=== PATIENT | male | born 1950 | race Hispanic/Latino ===

== ENCOUNTER 2018-09-16 10:40 | Emergency (ER) | payer MEDICARE, OTHER ==
[2018-09-16] MEDS ORDERED: levETIRAcetam 1,000 MG in NA CHLORIDE 0.9% 100 ML IV ONE (12:15)
--- NOTE | 2018-09-16 12:24 | EDPHYS ---
Physician Documentation [facility] Name: Tonio Almonte Age: 67 yrs Sex: Male : 1950 Arrival Date: 09/16/2018 Time: 10:44 Bed 15 Private MD: ED Physician Eric Webster HPI: 09/16 12:00 This 67 yrs old Male presents to ER via EMS with complaints of Seizure. pm1 12:00 The patient presents the episode(s) was witnessed, Home health nurse. pm1 21:26 Character of seizure(s): Loss of consciousness: the patient experienced loss of pm1 consciousness, Motor activity: generalized, Incontinence: incontinent of bladder, incontinent of bowel, Apnea: the patient did not experience apnea, Circulation: the patient did not experience evidence of pulse disturbance. Seizure onset: just prior to arrival. Context: occurred at home, Contributing factors: unknown, the patient is post-ictal. Seizure Hx: Last seizure: The patient's last seizure was approximately 2 year(s) ago, Seizure medications: Keppra. Associated injury: The patient did not suffer any apparent associated injury. EMS care: none. Current symptoms: Currently, the patient is not experiencing any symptoms, the patient feels back to baseline. The patient has experienced similar episodes in the past, multiple times, due to prior CVA. Historical: - Allergies: 10:49 No Known Allergies; bp - Home Meds: 10:49 levetiracetam 500 mg Oral tab 1 tab twice a day [Active]; Risperdal 4 mg oral tab 1 tab bp once daily [Active]; fluoxetine 20 mg Oral cap 1 cap once daily [Active]; Namzaric 28-10 mg oral CSpX 1 cap once daily [Active]; donepezil 10 mg oral tab 1 tab twice a day [Active]; loratadine 10 mg oral tab 1 tab once daily [Active]; - PMHx: 10:49 epilepsy; CVA; bp - Immunization history:: Adult Immunizations up to date. - Social history:: Smoking status: Patient/guardian denies using tobacco. - Ebola Screening: : Patient negative for fever greater than or equal to 101.5 degrees Fahrenheit, and additional compatible Ebola Virus Disease symptoms Patient denies exposure to infectious person Patient denies travel to an Ebola-affected area in the 21 days before illness onset No symptoms or risks identified at this time. ROS: 21:26 Constitutional: Negative for fever, chills, and weight loss, Eyes: Negative for injury, pm1 pain, redness, and discharge, ENT: Negative for injury, pain, and discharge, Neck: Negative for injury, pain, and swelling, Cardiovascular: Negative for chest pain, palpitations, and edema, Respiratory: Negative for shortness of breath, cough, wheezing, and pleuritic chest pain, Abdomen/GI: Negative for abdominal pain, nausea, vomiting, diarrhea, and constipation, Back: Negative for injury and pain, : Negative for injury, bleeding, discharge, and swelling, MS/Extremity: Negative for injury and deformity, Skin: Negative for injury, rash, and discoloration. 21:26 Neuro: Positive for seizure activity, Negative for headache. Exam: 21:26 Constitutional: This is a well developed, well nourished patient who is awake, alert, pm1 and in no acute distress. Head/Face: Normocephalic, atraumatic. Eyes: Pupils equal round and reactive to light, extra-ocular motions intact. Lids and lashes normal. Conjunctiva and sclera are non-icteric and not injected. Cornea within normal limits. Periorbital areas with no swelling, redness, or edema. ENT: Nares patent. No nasal discharge, no septal abnormalities noted. Tympanic membranes are normal and external auditory canals are clear. Oropharynx with no redness, swelling, or masses, exudates, or evidence of obstruction, uvula midline. Mucous membranes moist. Neck: Trachea midline, no thyromegaly or masses palpated, and no cervical lymphadenopathy. Supple, full range of motion without nuchal rigidity, or vertebral point tenderness. No Meningismus. Chest/axilla: Normal chest wall appearance and motion. Nontender with no deformity. No lesions are appreciated. Cardiovascular: Regular rate and rhythm with a normal S1 and S2. No gallops, murmurs, or rubs. Normal PMI, no JVD. No pulse deficits. Respiratory: Lungs have equal breath sounds bilaterally, clear to auscultation and percussion. No rales, rhonchi or wheezes noted. No increased work of breathing, no retractions or nasal flaring. Abdomen/GI: Soft, non-tender, with normal bowel sounds. No distension or tympany. No guarding or rebound. No evidence of tenderness throughout. Back: No spinal tenderness. No costovertebral tenderness. Full range of motion. Skin: Warm, dry with normal turgor. Normal color with no rashes, no lesions, and no evidence of cellulitis. MS/ Extremity: Pulses equal, no cyanosis. Neurovascular intact. Full, normal range of motion. 21:26 Neuro: Orientation: to person, place, time, situation, Mentation: is normal, Motor: moves all fours, baseline 2/5 in lower extremities, baseline 3/5 in upper extermites. Vital Signs: 10:52 BP 143 / 70; Pulse 81; Resp 16; Temp 98; Pulse Ox 100% ; Weight 72.57 kg; bp 12:04 BP 142 / 78; Pulse 77; Resp 16; Pulse Ox 99% on R/A; mh5 14:00 BP 138 / 76; Pulse 78; Resp 17; Pulse Ox 100% on R/A; mh5 [place] Coma Score: 10:49 Eye Response: spontaneous(4). Verbal Response: oriented(5). Motor Response: obeys bp commands(6). Total: 15. MDM: 10:47 Patient medically screened. pm1 11:28 Data reviewed: vital signs. Data interpreted: Pulse oximetry: on room air is 100 %. pm1 Interpretation: normal. 12:23 Counseling: I had a detailed discussion with the patient and/or guardian regarding: the pm1 historical points, exam findings, and any diagnostic results supporting the discharge/admit diagnosis, the need for outpatient follow up, for definitive care, a neurologist, to return to the emergency department if symptoms worsen or persist or if there are any questions or concerns that arise at home. Administered Medications: 12:20 Drug: Keppra 1000 mg Route: IV; Rate: calculated rate; Site: left hand; bp 14:29 Follow up: IV Status: Completed infusion; IV Intake: 100ml bp Disposition: 09/16/18 12:24 Discharged to Home. Impression: Epilepsy and recurrent seizures. - Condition is Stable. - Discharge Instructions: Seizure, Adult, [id number]. - Medication Reconciliation Form, Thank You Letter form. - Follow up: Emergency Department; When: As needed; Reason: Recheck today's complaints, Continuance of care, Re-evaluation by your physician. Follow up: Valentina, Matias, MD; When: 2 - 3 days; Reason: Recheck today's complaints, Continuance of care, Re-evaluation by your physician. - Problem is new. - Symptoms have improved. Addendum: 09/28/2018 15:10 Co-signature as Attending Physician, Eric Webster MD Available for consultation at p s1 all times. . Signatures: Js Wolf NP LINE PILOT pm1 Gianfranco Landeros, RN RN bp Eric Webster MD MD ps1 Corrections: (The following items were deleted from the chart) 09/16 14:32 12:24 09/16/2018 12:24 Discharged to Home. Impression: Epilepsy and recurrent seizures. bp Condition is Stable. Forms are Medication Reconciliation Form, Thank You Letter, Antibiotic Education, Prescription Opioid Use. Follow up: Emergency Department; When: As needed; Reason: Recheck today's complaints, Continuance of care, Re-evaluation by your physician. Follow up: Matias Montgomery; When: 2 - 3 days; Reason: Recheck today's complaints, Continuance of care, Re-evaluation by your physician. Problem is new. Symptoms have improved. pm1
--- NOTE | 2018-09-16 12:24 | ER ---
Nurse's Notes [facility] Name: Tonio Almonte Age: 67 yrs Sex: Male : 1950 Arrival Date: 09/16/2018 Time: 10:44 Bed 15 Private MD: Diagnosis: Epilepsy and recurrent seizures Presentation: 09/16 10:44 Presenting complaint: EMS states: WITNESSED SEIZURE. Transition of care: patient was bp not received from another setting of care. Onset of symptoms is unknown. Risk Assessment: Do you want to hurt yourself or someone else? Patient reports no desire to harm self or others. Initial Sepsis Screen: Does the patient meet any 2 criteria? No. Patient's initial sepsis screen is negative. Does the patient have a suspected source of infection? No. Patient's initial sepsis screen is negative. Care prior to arrival: IV initiated. 20 GA, in the left hand, Glucose check: 95 Oxygen administered. via nasal cannula. 10:44 Method Of Arrival: EMS: [facility] bp 10:44 Acuity: OPAL 3 bp Triage Assessment: 10:49 General: Appears in no apparent distress. comfortable, obese, Behavior is calm, bp cooperative, appropriate for age. Pain: Denies pain. EENT: No deficits noted. Neuro: Level of Consciousness is awake, alert, obeys commands, Oriented to person, place, time, situation, Appropriate for age LEFT SIDED RESIDUAL DEFICITS. Cardiovascular: No deficits noted. Respiratory: Airway is patent Respiratory effort is even, unlabored, Respiratory pattern is regular, symmetrical. GI: No signs and/or symptoms were reported involving the gastrointestinal system. : No signs and/or symptoms were reported regarding the genitourinary system. Derm: No deficits noted. Musculoskeletal: Circulation, motion, and sensation intact. Range of motion: intact in all extremities. Historical: - Allergies: 10:49 No Known Allergies; bp - Home Meds: 10:49 levetiracetam 500 mg Oral tab 1 tab twice a day [Active]; Risperdal 4 mg oral tab 1 tab bp once daily [Active]; fluoxetine 20 mg Oral cap 1 cap once daily [Active]; Namzaric 28-10 mg oral CSpX 1 cap once daily [Active]; donepezil 10 mg oral tab 1 tab twice a day [Active]; loratadine 10 mg oral tab 1 tab once daily [Active]; - PMHx: 10:49 epilepsy; CVA; bp - Immunization history:: Adult Immunizations up to date. - Social history:: Smoking status: Patient/guardian denies using tobacco. - Ebola Screening: : Patient negative for fever greater than or equal to 101.5 degrees Fahrenheit, and additional compatible Ebola Virus Disease symptoms Patient denies exposure to infectious person Patient denies travel to an Ebola-affected area in the 21 days before illness onset No symptoms or risks identified at this time. Screenin:53 Abuse screen: Denies threats or abuse. Denies injuries from another. Nutritional bp screening: No deficits noted. Tuberculosis screening: No symptoms or risk factors identified. Fall Risk None identified. Assessment: 10:54 General: SEE TRIAGE NOTE. bp 12:20 Reassessment: D/C ON HOLD FOR IV INFUSION AND TRANSPORT HOME. bp 13:44 Reassessment: NO AVAILABLE TRANSPORT AT THIS TIME, CHARGE INFORMED. D/C ON HOLD PENDING bp AVAILABLE TRANSPORT. 14:27 Reassessment: FAMILY LOCATED. PT D/C HOME VIA W/C WITH FAMILY, DX WITH SZ D/O. bp Vital Signs: 10:52 BP 143 / 70; Pulse 81; Resp 16; Temp 98; Pulse Ox 100% ; Weight 72.57 kg; bp 12:04 BP 142 / 78; Pulse 77; Resp 16; Pulse Ox 99% on R/A; mh5 14:00 BP 138 / 76; Pulse 78; Resp 17; Pulse Ox 100% on R/A; mh5 [place] Coma Score: 10:49 Eye Response: spontaneous(4). Verbal Response: oriented(5). Motor Response: obeys bp commands(6). Total: 15. ED Course: 10:44 Patient arrived in ED. bp 10:45 Triage completed. bp 10:46 Js Wolf NP is PHCP. pm1 10:46 Eric Webster MD is Attending Physician. pm1 10:52 Arm band placed on. bp 10:53 Patient has correct armband on for positive identification. Bed in low position. Call bp light in reach. Side rails up X2. 10:53 Maintain EMS IV. Dressing intact. Good blood return noted. Site clean \T\ dry. Gauge \T\ bp site: 20 GAUGE LEFT HAND. 11:00 Seizure precautions initiated. bp 11:53 Tigre, Gianfranco, RN is Primary Nurse. bp 12:24 Matias Montgomery MD is Referral Physician. pm1 14:28 No provider procedures requiring assistance completed. IV discontinued, intact, bp bleeding controlled, No redness/swelling at site. Pressure dressing applied. Administered Medications: 12:20 Drug: Keppra 1000 mg Route: IV; Rate: calculated rate; Site: left hand; bp 14:29 Follow up: IV Status: Completed infusion; IV Intake: 100ml bp Intake: 14:29 IV: 100ml; Total: 100ml. bp Outcome: 12:24 Discharge ordered by MD. pm1 14:28 Discharged to home via wheelchair, with family. bp 14:28 Condition: stable 14:28 Discharge instructions given to patient, Instructed on discharge instructions, follow up and referral plans. Demonstrated understanding of instructions, follow-up care. 14:32 Patient left the ED. bp Signatures: Js Wolf, EDUARDO TELEPHONE SOLICITOR SUPERVISOR pm1 Katarina Méndez [facility] Gianfranco Landeros, RN RN bp
== END 2018-09-16 14:32 | disposition home or self-care (01) ==
LOC: ER 10:40
DX: G40.909 Epilepsy, unspecified, not intractable, without status epilepticus (principal); Z79.899 Other long term (current) drug therapy; Z86.73 Personal history of transient ischemic attack (TIA), and cerebral infarction without residual deficits
CPT/HCPCS: 96365; 96366; 99283; J1953

== ENCOUNTER 2018-10-30 16:14 | Emergency (ER) | payer MEDICARE, OTHER ==
--- NOTE | 2018-10-30 17:22 | RAD REPORT ---
EXAM DESCRIPTION: Pancho Single View10/30/2018 5:08 pm CLINICAL HISTORY: cough COMPARISON: 2017 FINDINGS: The lungs appear clear of acute infiltrate. The heart is normal size IMPRESSION: No acute abnormalities displayed
[2018-10-30 17:29] LABS: Absolute Lymphocytes (CBC) 1.7 K/uL (0.7-4.9); Absolute Neutrophil 6.3 K/uL (1.8-8.0); Basophils % 0.4 % (0-1.3); Eosinophils % 0.7 % (0-4.4); Hematocrit 36.9 % (39.6-49.0); Lymphocytes % 19.4 % (15.3-44.8); MPV 7.7 fL (7.6-11.3); Monocytes % 8.8 % (3.3-12.3); RBC Red Blood Cell Count 3.88 M/uL (4.33-5.43)
[2018-10-30 17:30] LABS: Absolute Monocytes 0.8 K/uL (0.1-1.3)
[2018-10-30 17:31] LABS: Protime INR 1.13
[2018-10-30 17:49] LABS: ALT/SGPT 19 U/L (12-78); AST/SGOT 9 U/L (15-37); Albumin 3.4 g/dL (3.4-5.0); Alkaline Phosphatase 47 U/L (45-117); BUN Blood Urea Nitrogen 15 mg/dL (7-18); Bicarbonate 31 mmol/L (21-32); Bilirubin Direct < 0.1 mg/dL (0-0.2); Bilirubin Total 0.3 mg/dL (0.2-1.0); Glucose Level 87 mg/dL (74-106); Lipase 136 U/L (73-393); Magnesium 2.5 mg/dL (1.8-2.4); NT PRO-BNP 52 pg/mL (<125); Potassium 4.2 mmol/L (3.5-5.1); Protein, Total 6.7 g/dL (6.4-8.2); Sodium Level 139 mmol/L (136-145); Troponin (Emerg Dept Use Only) < 0.02 ng/mL (0.0-0.045)
--- NOTE | 2018-10-30 17:53 | RAD REPORT ---
EXAM DESCRIPTION: US - Scrotum Testicles - 10/30/2018 5:37 pm CLINICAL HISTORY: Scrotal pain COMPARISON: 2009 FINDINGS: Right testicle measures 4.4 x 2.2 x 2.9 centimeters. Echotexture is homogeneous. Normal bl ood flow Left testicle measures 4.7 x 2 x 3.4 centimeters. Echotexture is homogeneous. Normal blood flow The epididymides are normal in size and echotexture. Normal blood flow is seen. IMPRESSION: Unremarkable exam
--- NOTE | 2018-10-30 19:17 | ER ---
Nurse's Notes [facility] Name: Tonio Almonte Age: 67 yrs Sex: Male : 1950 Arrival Date: 10/30/2018 Time: 16:25 Bed 14 Private MD: Diagnosis: Bradycardia, unspecified;Weakness;Cellulitis of groin Presentation: 10/30 16:37 Presenting complaint: EMS states: Pt reports groin pain x 2-3 days, denies difficulty ph urinating, N/V/D or fever. Transition of care: patient was not received from another setting of care. Onset of symptoms was October 30, 2018. Risk Assessment: Do you want to hurt yourself or someone else? Patient reports no desire to harm self or others. Initial Sepsis Screen: Does the patient meet any 2 criteria? No. Patient's initial sepsis screen is negative. Does the patient have a suspected source of infection? No. Patient's initial sepsis screen is negative. Care prior to arrival: None. 16:37 Method Of Arrival: EMS: [facility] ph 16:37 Acuity: OPAL 3 ph Historical: - Allergies: 16:27 No Known Allergies; tw2 - Home Meds: 16:27 Risperdal 4 mg Oral tab 1 tab once daily [Active]; Namzaric 28-10 mg Oral CSpX 1 cap tw2 once daily [Active]; loratadine 10 mg Oral tab 1 tab once daily [Active]; levetiracetam 500 mg Oral tab 1 tab twice a day [Active]; donepezil 10 mg Oral tab 1 tab twice a day [Active]; fluoxetine 20 mg Oral cap 1 cap once daily [Active]; - PMHx: 16:27 CVA; epilepsy; tw2 - Immunization history:: Adult Immunizations. - Social history:: Smoking status: . - Ebola Screening: : Patient denies travel to an Ebola-affected area in the 21 days before illness onset. - Family history:: not pertinent. Screenin:25 Abuse screen: Denies threats or abuse. Nutritional screening: No deficits noted. tw2 Tuberculosis screening: No symptoms or risk factors identified. Fall Risk None identified. Assessment: 16:35 Reassessment: Pt soiled self PHYSICIAN GYNECOLOGIST, pt cleaned of stool, brief from home noted to on ph incorrectly w/ leg placed in large opening for body, redness noted to R inner thigh and sofya testicles. 16:45 General: Appears in no apparent distress. comfortable, Behavior is calm, cooperative, ph appropriate for age, Denies fever, feeling ill. Pain: Complains of pain in groin Pain does not radiate. Neuro: Level of Consciousness is awake, alert, obeys commands, Oriented to person, place, situation. Cardiovascular: Capillary refill < 3 seconds in bilateral fingers Patient's skin is warm and dry. Respiratory: Airway is patent Respiratory effort is even, unlabored. GI: Abdomen is round non-distended, Stools are reported to be loose, Bowel sounds present X 4 quads. Patient currently denies abdominal pain, diarrhea, nausea, vomiting. : Reports pain in suprapubic area scrotum, Denies burning with urination, urinary frequency. 16:50 Derm: Skin is healthy with good turgor, Skin is pink, warm \\T\\ dry. Musculoskeletal: ph Circulation, motion, and sensation intact. 18:22 Reassessment: Patient appears in no apparent distress at this time. Patient and/or ph family updated on plan of care and expected duration. Pain level reassessed. Pt resting quietly, appears to be sleeping, respirations even and unlabored, awakens easily, awaiting lab and US results. 18:46 Reassessment: Patient and/or family updated on plan of care and expected duration. Pain ph level reassessed. Pt attempting to stand up at bedside, states, " I have to pee." Pt assisted in using urinal and back into bed. Now resting quietly, VSS, awaiting lab and US results. 19:20 Reassessment: Patient appears in no apparent distress at this time. Patient and/or jb4 family updated on plan of care and expected duration. Pain level reassessed. Discharged pt, trying to get ride for pt. 20:06 Reassessment: Patient appears in no apparent distress at this time. Patient and/or jb4 family updated on plan of care and expected duration. Pain level reassessed. Patient is alert, oriented x 3, equal unlabored respirations, skin warm/dry/pink. Vital Signs: 16:41 BP 135 / 63; Pulse 58; Resp 18; Temp 97.4; Pulse Ox 99% on R/A; ph 17:30 BP 118 / 64; Pulse 50; Resp 16; Pulse Ox 99% on R/A; ph 18:26 BP 103 / 64; Pulse 46; Resp 16; Pulse Ox 98% on R/A; ph 18:49 BP 124 / 64; Pulse 44; Resp 16; Pulse Ox 100% on R/A; ph 19:30 BP 144 / 63; Pulse 65; Resp 16; Pulse Ox 99% on R/A; jb4 ED Course: 16:25 Patient arrived in ED. tw2 16:25 Placed in gown. Bed in low position. Side rails up X2. dish room worker on. Pulse ox on. tw2 NIBP on. 16:32 Giovanni Pruett MD is Attending Physician. tiburcio 16:37 Audra Fischer, RN is Primary Nurse. ph 16:41 Triage completed. ph 16:50 Arm band placed on. ph 16:52 EKG done, by mining engineering technologist. reviewed by Giovanni Pruett MD. 3 17:09 XRAY Chest (1 view) In Process Unspecified. EDMS 17:15 Inserted saline lock: 22 gauge in right antecubital area, using aseptic technique. ph Blood collected. 17:37 US Scrotum Testicles In Process Unspecified. EDMS 18:27 No provider procedures requiring assistance completed. ph 19:17 Margarito Alexander MD is Referral Physician. tiburcio 20:10 IV discontinued, intact, bleeding controlled. jb4 Administered Medications: No medications were administered Outcome: 19:17 Discharge ordered by . tiburcio 20:10 Discharged to home via wheelchair. jb4 20:10 Condition: stable 20:10 Discharge instructions given to patient, Instructed on discharge instructions, follow up and referral plans. medication usage, Demonstrated understanding of instructions, follow-up care, medications, Prescriptions given X 2. 20:11 Patient left the ED. jb4 Signatures: Dispatcher [employer] EDMS Giovanni Pruett MD MD cha Hall, Patricia, RN RN ph Katja Niño RN RN 2 Salvador Daily RN RN jb4 Alina Cao 3 Corrections: (The following items were deleted from the chart) 16:51 16:45 : Reports pain in suprapubic area scrotum, Denies ph ph 19:00 16:41 BP 135 / 63; Pulse 58bpm; Resp 18bpm; Pulse Ox 99% RA; ph ph
--- NOTE | 2018-10-30 19:17 | EDPHYS ---
Physician Documentation [facility] Name: Tonio Almonte Age: 67 yrs Sex: Male : 1950 Arrival Date: 10/30/2018 Time: 16:25 Bed 14 Private MD: ED Physician Giovanni Pruett HPI: 10/30 17:39 This 67 yrs old Male presents to ER via EMS with complaints of testicular tiburcio pain, groin pain. 17:39 The patient presents with scrotal pain, of both sides. Onset: The symptoms/episode tiburcio began/occurred 2 day(s) ago. Modifying factors: The symptoms are alleviated by nothing. Associated signs and symptoms: The patient has no apparent associated signs or symptoms. Severity of symptoms: At their worst the symptoms were mild. It is unknown whether or not the patient has had similar symptoms in the past. Historical: - Allergies: 16:27 No Known Allergies; tw2 - Home Meds: 16:27 Risperdal 4 mg Oral tab 1 tab once daily [Active]; Namzaric 28-10 mg Oral CSpX 1 cap tw2 once daily [Active]; loratadine 10 mg Oral tab 1 tab once daily [Active]; levetiracetam 500 mg Oral tab 1 tab twice a day [Active]; donepezil 10 mg Oral tab 1 tab twice a day [Active]; fluoxetine 20 mg Oral cap 1 cap once daily [Active]; - PMHx: 16:27 CVA; epilepsy; tw2 - Immunization history:: Adult Immunizations. - Social history:: Smoking status: . - Ebola Screening: : Patient denies travel to an Ebola-affected area in the 21 days before illness onset. - Family history:: not pertinent. ROS: 17:39 Constitutional: Negative for fever, chills, and weight loss, Eyes: Negative for injury, tiburcio pain, redness, and discharge, ENT: Negative for injury, pain, and discharge, Neck: Negative for injury, pain, and swelling, Cardiovascular: Negative for chest pain, palpitations, and edema, Respiratory: Negative for shortness of breath, cough, wheezing, and pleuritic chest pain, Abdomen/GI: Negative for abdominal pain, nausea, vomiting, diarrhea, and constipation, Back: Negative for injury and pain, MS/Extremity: Negative for injury and deformity, Skin: Negative for injury, rash, and discoloration, Neuro: Negative for headache, weakness, numbness, tingling, and seizure, Psych: Negative for depression, anxiety, suicide ideation, homicidal ideation, and hallucinations, Allergy/Immunology: Negative for hives, rash, and allergies, Endocrine: Negative for neck swelling, polydipsia, polyuria, polyphagia, and marked weight changes, Hematologic/Lymphatic: Negative for swollen nodes, abnormal bleeding, and unusual bruising. 17:39 : Positive for testicular pain Exam: 17:39 Constitutional: This is a well developed, well nourished patient who is awake, alert, tiburcio and in no acute distress. Head/Face: Normocephalic, atraumatic. Eyes: Pupils equal round and reactive to light, extra-ocular motions intact. Lids and lashes normal. Conjunctiva and sclera are non-icteric and not injected. Cornea within normal limits. Periorbital areas with no swelling, redness, or edema. ENT: Nares patent. No nasal discharge, no septal abnormalities noted. Tympanic membranes are normal and external auditory canals are clear. Oropharynx with no redness, swelling, or masses, exudates, or evidence of obstruction, uvula midline. Mucous membranes moist. Neck: Trachea midline, no thyromegaly or masses palpated, and no cervical lymphadenopathy. Supple, full range of motion without nuchal rigidity, or vertebral point tenderness. No Meningismus. Chest/axilla: Normal chest wall appearance and motion. Nontender with no deformity. No lesions are appreciated. Cardiovascular: Regular rate and rhythm with a normal S1 and S2. No gallops, murmurs, or rubs. Normal PMI, no JVD. No pulse deficits. Respiratory: Lungs have equal breath sounds bilaterally, clear to auscultation and percussion. No rales, rhonchi or wheezes noted. No increased work of breathing, no retractions or nasal flaring. Abdomen/GI: Soft, non-tender, with normal bowel sounds. No distension or tympany. No guarding or rebound. No evidence of tenderness throughout. Back: No spinal tenderness. No costovertebral tenderness. Full range of motion. Skin: Warm, dry with normal turgor. Normal color with no rashes, no lesions, and no evidence of cellulitis. MS/ Extremity: Pulses equal, no cyanosis. Neurovascular intact. Full, normal range of motion. Neuro: Awake and alert, GCS 15, oriented to person, place, time, and situation. Cranial nerves II-XII grossly intact. Motor strength 5/5 in all extremities. Sensory grossly intact. Cerebellar exam normal. Normal gait. Psych: Awake, alert, with orientation to person, place and time. Behavior, mood, and affect are within normal limits. 17:39 : CVA tenderness, is absent, Male external genitalia: normal, Bladder: is normal, Sexual behavior: the patient is not sexually active. Vital Signs: 16:41 BP 135 / 63; Pulse 58; Resp 18; Temp 97.4; Pulse Ox 99% on R/A; ph 17:30 BP 118 / 64; Pulse 50; Resp 16; Pulse Ox 99% on R/A; ph 18:26 BP 103 / 64; Pulse 46; Resp 16; Pulse Ox 98% on R/A; ph 18:49 BP 124 / 64; Pulse 44; Resp 16; Pulse Ox 100% on R/A; ph 19:30 BP 144 / 63; Pulse 65; Resp 16; Pulse Ox 99% on R/A; jb4 MDM: 16:32 Patient medically screened. [facility] 17:39 Data reviewed: vital signs, nurses notes, lab test result(s), EKG, radiologic studies, [facility] plain films, ultrasound. 10/30 16:33 Order name: Basic Metabolic Panel; Complete Time: 19:15 [facility] 10/30 16:33 Order name: CBC with Diff; Complete Time: 19:15 [facility] 10/30 16:33 Order name: LFT's; Complete Time: 19:15 [facility] 10/30 16:33 Order name: Magnesium; Complete Time: 19:15 [facility] 10/30 16:33 Order name: NT PRO-BNP; Complete Time: 19:15 [facility] 10/30 16:33 Order name: PT-INR; Complete Time: 19:15 [facility] 10/30 16:33 Order name: Troponin (emerg Dept Use Only); Complete Time: 19:15 [facility] 10/30 16:33 Order name: XRAY Chest (1 view); Complete Time: 17:38 [facility] 10/30 16:33 Order name: EKG; Complete Time: 16:34 [facility] 10/30 16:33 Order name: Cardiac monitoring; Complete Time: 19:06 [facility] 10/30 16:33 Order name: Lipase; Complete Time: 19:15 [facility] 10/30 16:33 Order name: Urine Culture [facility] 10/30 16:33 Order name: US Scrotum Testicles; Complete Time: 19:15 [facility] 10/30 18:06 Order name: Urine Dipstick--Ancillary (enter results) 10/30 16:33 Order name: EKG - Nurse/Tech; Complete Time: 16:52 [facility] 10/30 16:33 Order name: IV Saline Lock; Complete Time: 19:07 [facility] 10/30 16:33 Order name: Labs collected and sent; Complete Time: 19:07 [facility] 10/30 16:33 Order name: O2 Per Protocol; Complete Time: 16:52 [facility] 10/30 16:33 Order name: O2 Sat Monitoring; Complete Time: 16:52 [facility] 10/30 16:33 Order name: Urine Dipstick-Ancillary (obtain specimen); Complete Time: 18:59 [facility] Administered Medications: No medications were administered Disposition: 10/30/18 19:17 Discharged to Home. Impression: Bradycardia, unspecified, Weakness, Cellulitis of groin. - Condition is Stable. - Discharge Instructions: Bradycardia, Adult, Cellulitis, Adult, Weakness, Cellulitis, Adult, [id number], Weakness, [id number]. - Prescriptions for Tylenol- Codeine #3 300-30 mg Oral Tablet - take 2 tablets by ORAL route every 6 hours As needed; 25 tablet. Bactrim DS 800- 160 mg Oral Tablet - take 1 tablet by ORAL route every 12 hours for 10 days; 20 tablet. - Medication Reconciliation Form, Thank You Letter, Antibiotic Education, Prescription Opioid Use form. - Follow up: Private Physician; When: 2 - 3 days; Reason: Recheck today's complaints, Continuance of care, Re-evaluation by your physician. Follow up: Margarito Alexander MD; When: 2 - 3 days; Reason: Recheck today's complaints, Continuance of care, Re-evaluation by your physician. - Problem is new. - Symptoms have improved. Signatures: Dispatcher [employer] EDGiovanni Johnston MD MD cha Wise, Tara, RN RN tw2 Salvador Daily RN RN jb4 Corrections: (The following items were deleted from the chart) 19:19 19:17 10/30/2018 19:17 Discharged to Home. Impression: Bradycardia, unspecified; tiburcio Weakness. Condition is Stable. Discharge Instructions: Bradycardia, Adult, Weakness, Weakness, [id number]. Forms are Medication Reconciliation Form, Thank You Letter, Antibiotic Education, Prescription Opioid Use. Follow up: Private Physician; When: 2 - 3 days; Reason: Recheck today's complaints, Continuance of care, Re-evaluation by your physician. Follow up: Margarito Alexander; When: 2 - 3 days; Reason: Recheck today's complaints, Continuance of care, Re-evaluation by your physician. Problem is new. Symptoms have improved. tiburcio 20:11 19:19 10/30/2018 19:17 Discharged to Home. Impression: Bradycardia, unspecified; jb4 Weakness; Cellulitis of groin. Condition is Stable. Discharge Instructions: Bradycardia, Adult, Weakness, Weakness, [id number], Cellulitis, Adult, Cellulitis, Adult, [id number]. Prescriptions for Tylenol-Codeine #3 300-30 mg Oral Tablet - take 2 tablets by ORAL route every 6 hours As needed; 25 tablet, Bactrim DS 800-160 mg Oral Tablet - take 1 tablet by ORAL route every 12 hours for 10 days; 20 tablet. and Forms are Medication Reconciliation Form, Thank You Letter, Antibiotic Education, Prescription Opioid Use. Follow up: Private Physician; When: 2 - 3 days; Reason: Recheck today's complaints, Continuance of care, Re-evaluation by your physician. Follow up: Margarito Alexander; When: 2 - 3 days; Reason: Recheck today's complaints, Continuance of care, Re-evaluation by your physician. Problem is new. Symptoms have improved. tiburcio
[2018-10-30 20:16] LABS: Urine Blood TRACE (NEG); Urine Glucose NEGATIVE (NEG); Urine Protein NEGATIVE (NEG); Urine Specific Gravity 1.015 (1.005-1.030)
--- NOTE | 2018-10-31 07:39 | EKG ---
Test Date: 2018-09-29 Test Time: 16:50:20 Wrist Liner: PADDY MEASUREMENT RESULTS: Intervals: Rate: 46 SD: 168 QRSD: 86 QT: 448 QTc: 392 Carbon: P: 56 SD: 168 QRS: 49 T: 45 INTERPRETIVE STATEMENTS: Marked sinus bradycardia Abnormal ECG Compared to ECG 08/30/2017 14:41:56 No significant changes Electronically Signed On 10-31-18 07:30:15 SUSTAINABILITY COORDINATOR by Madi Bautista
== END 2018-10-30 20:11 | disposition home or self-care (01) ==
LOC: ER 16:14
DX: L03.314 Cellulitis of groin (principal); R00.1 Bradycardia, unspecified; R53.1 Weakness; R94.31 Abnormal electrocardiogram [ECG] [EKG]; G40.909 Epilepsy, unspecified, not intractable, without status epilepticus; Z79.899 Other long term (current) drug therapy; Z86.73 Personal history of transient ischemic attack (TIA), and cerebral infarction without residual deficits
CPT/HCPCS: 36415; 71045; 76870; 80048; 80076; 81003; 83690; 83735; 83880; 84484; 85025; 85610; 87086; 87088; 93005; 99285

== ENCOUNTER 2018-10-30 23:33 | Observation (INO) | payer MEDICARE, OTHER ==
--- NOTE | 2018-10-31 00:51 | ER ---
Nurse's Notes [facility] Name: Tonio Almonte Age: 67 yrs Sex: Male : 1950 Arrival Date: 10/30/2018 Time: 23:49 Bed 17 Private MD: Diagnosis: Epilepsy and recurrent seizures;Altered mental status, unspecified Presentation: 10/30 23:49 Presenting complaint: pt had seizure after he was discharged and was readmitted. bb Transition of care: patient was not received from another setting of care. Onset of symptoms was October 30, 2018. Risk Assessment: Do you want to hurt yourself or someone else? Unable to obtain. Initial Sepsis Screen: Does the patient meet any 2 criteria? No. Patient's initial sepsis screen is negative. Does the patient have a suspected source of infection? No. Patient's initial sepsis screen is negative. Care prior to arrival: None. 23:49 Method Of Arrival: Stretcher bb 23:49 Acuity: OPAL 2 bb Historical: - Allergies: 23:56 No Known Allergies; bb - Home Meds: 23:56 donepezil 10 mg Oral tab 1 tab twice a day [Active]; fluoxetine 20 mg Oral cap 1 cap bb once daily [Active]; levetiracetam 500 mg Oral tab 1 tab twice a day [Active]; loratadine 10 mg Oral tab 1 tab once daily [Active]; Namzaric 28-10 mg Oral CSpX 1 cap once daily [Active]; Risperdal 4 mg Oral tab 1 tab once daily [Active]; - PMHx: 23:56 CVA; epilepsy; chronic mental illness; bb - Immunization history:: Adult Immunizations unknown. - Social history:: Smoking status: unknown. - Ebola Screening: : No symptoms or risks identified at this time. Screenin:47 Abuse screen: Denies threats or abuse. Nutritional screening: No deficits noted. jb4 Tuberculosis screening: No symptoms or risk factors identified. Fall Risk Secondary diagnosis (15 points) seizures, Mental Status- Overestimates/Forgets Limitations (15 pts.). Total Perry Fall Scale indicates Low Risk Score (25-44 pts). Fall prevention measures have been instituted. Side Rails Up X 2 Placed close to Nursing Station Frequent Obs/Assesments occuring. Assessment: 10/31 00:00 General: Appears in no apparent distress. comfortable, Behavior is calm, cooperative, jb4 appropriate for age. Pain: Denies pain. Neuro: Level of Consciousness is awake, alert, obeys commands, Oriented to person. Cardiovascular: Patient's skin is warm and dry. Respiratory: Airway is patent Respiratory effort is even, unlabored, Respiratory pattern is regular, symmetrical. GI: No signs and/or symptoms were reported involving the gastrointestinal system. : No signs and/or symptoms were reported regarding the genitourinary system. EENT: No signs and/or symptoms were reported regarding the EENT system. Derm: Skin is intact, Skin is pink, warm \T\ dry. Musculoskeletal: Circulation, motion, and sensation intact. 01:00 Reassessment: Patient appears in no apparent distress at this time. Patient and/or jb4 family updated on plan of care and expected duration. Pain level reassessed. Patient is alert, oriented x 3, equal unlabored respirations, skin warm/dry/pink. 02:00 Reassessment: Patient appears in no apparent distress at this time. Patient and/or jb4 family updated on plan of care and expected duration. Pain level reassessed. Patient is alert, oriented x 3, equal unlabored respirations, skin warm/dry/pink. Pt admitted to ER hold, See [facility] for further documentation. 07:30 Reassessment: Nurse unable to take report. sv Vital Signs: 10/30 23:47 BP 136 / 65; Pulse 79; Resp 16; Pulse Ox 98% on R/A; jb4 23:49 BP 136 / 65; Pulse 73; Resp 18 S; Temp 98.7(O); Pulse Ox 98% on R/A; bb 10/31 01:00 BP 119 / 70; Pulse 64; Resp 16; Pulse Ox 98% on R/A; jb4 02:00 BP 104 / 63; Pulse 59; Resp 16; Pulse Ox 97% on R/A; jb4 04:46 Temp 98.6(O); jb4 [place] Coma Score: 00:00 Eye Response: spontaneous(4). Verbal Response: confused(4). Motor Response: obeys jb4 commands(6). Total: 14. ED Course: 10/30 23:47 Patient has correct armband on for positive identification. Placed in gown. Bed in low jb4 position. Call light in reach. Side rails up X2. Pulse ox on. NIBP on. 23:49 Patient arrived in ED. bb 23:55 Triage completed. bb 23:56 Arm band placed on Patient placed in an exam room, on a stretcher, on unit manager, bb on pulse oximetry. 10/31 00:00 Seizure precautions initiated. jb4 00:02 Salvador Daily, RN is Primary Nurse. jb4 00:24 Mahi Hanley FNP-C [facility]. kb 00:24 Laci Macdonald MD is Attending Physician. kb 00:50 Rina Lomas MD is Hospitalizing Provider. kb 01:30 Inserted saline lock: 22 gauge in right forearm, using aseptic technique. jb4 02:00 No provider procedures requiring assistance completed. Patient admitted, IV remains in jb4 place. Administered Medications: 00:59 Drug: Keppra 1000 mg Route: PO; jb4 03:20 Follow up: Response: No adverse reaction jb4 Outcome: 00:50 Decision to Hospitalize by Provider. kb 02:00 Admitted to ER Hold. Please see [facility] for further documentation. jb4 02:00 Condition: stable 02:00 Discharge instructions given to patient, Instructed on the need for admit, Demonstrated understanding of instructions. 07:41 Patient left the ED. sv Signatures: Mahi Hanley FNP-C FNP-Ckb Verde, Stephanie, RN RN sv Ballard, Brenda, RN RN bb Salvador Daily, RN RN jb4
--- NOTE | 2018-10-31 00:51 | EDPHYS ---
Physician Documentation [facility] Name: Tonio Almonte Age: 67 yrs Sex: Male : 1950 Arrival Date: 10/30/2018 Time: 23:49 Bed 17 Private MD: ED Physician Laci Macdonald HPI: 10/31 00:39 This 67 yrs old Male presents to ER via Stretcher with complaints of Seizure. kb 00:39 The patient presents after having a single isolated seizure. Character of seizure(s): kb Loss of consciousness: the patient experienced loss of consciousness, Motor activity: generalized, shaking all over, Incontinence: none, Apnea: the patient did not experience apnea, Circulation: the patient did not experience evidence of pulse disturbance. Seizure onset: today. Context: the seizure(s) was witnessed, ED staff, occurred at a hospital, occurred while the patient was asleep. Seizure Hx: Original onset: longstanding. Associated injury: The patient did not suffer any apparent associated injury. Current symptoms: Currently, the patient is not experiencing any symptoms, the patient feels back to baseline, no decreased level of consciousness, no confusion, no dysphasia, no headache, no paralysis, no visual changes. The patient has experienced similar episodes in the past, chronically. The patient has been recently seen at the [facility] Emergency Department, just prior to arrival, for unrelated complaints. Pt was seen for groin pain today, discharged to [facility] and was found walking around barefoot and didn't know where he was or why. Pt was placed in a room to rest while family was located to pick pt up. Nursing staff was unable to find a family member, called [facility] because they are the ones that called 911 for the pt and called [facility]. Pt had a seizure while laying on stretcher so he was readmitted to ER. Nursing staff unable to locate family (phone number are not in service). Pt alert and oriented to name and . States his Dr is Dr Cuellar and he lives alone in [place]. Has a brother and [id number] that live in [place] as well, but unable to recall their phone number. Pt cannot remember if he took his Keppra today or not. Historical: - Allergies: 10/30 23:56 No Known Allergies; bb - Home Meds: 23:56 donepezil 10 mg Oral tab 1 tab twice a day [Active]; fluoxetine 20 mg Oral cap 1 cap bb once daily [Active]; levetiracetam 500 mg Oral tab 1 tab twice a day [Active]; loratadine 10 mg Oral tab 1 tab once daily [Active]; Namzaric 28-10 mg Oral CSpX 1 cap once daily [Active]; Risperdal 4 mg Oral tab 1 tab once daily [Active]; - PMHx: 23:56 CVA; epilepsy; chronic mental illness; bb - Immunization history:: Adult Immunizations unknown. - Social history:: Smoking status: unknown. - Ebola Screening: : No symptoms or risks identified at this time. ROS: 10/31 00:35 Constitutional: Negative for fever, chills, and weight loss, Cardiovascular: Negative kb for chest pain, palpitations, and edema, Respiratory: Negative for shortness of breath, cough, wheezing, and pleuritic chest pain, Abdomen/GI: Negative for abdominal pain, nausea, vomiting, diarrhea, and constipation, Back: Negative for injury and pain. Neuro: Positive for seizure activity, Negative for dizziness, gait disturbance, headache, hearing loss, loss of consciousness, numbness, speech changes, syncope, near syncope, tingling, tinnitus, tremor, visual changes, weakness. Exam: 00:39 Constitutional: This is a well developed, well nourished patient who is awake, alert, kb and in no acute distress. Head/Face: Normocephalic, atraumatic. ENT: Nares patent. No nasal discharge, no septal abnormalities noted. Tympanic membranes are normal and external auditory canals are clear. Oropharynx with no redness, swelling, or masses, exudates, or evidence of obstruction, uvula midline. Mucous membranes moist. Neck: Trachea midline, no thyromegaly or masses palpated, and no cervical lymphadenopathy. Supple, full range of motion without nuchal rigidity, or vertebral point tenderness. No Meningismus. Chest/axilla: Normal chest wall appearance and motion. Nontender with no deformity. No lesions are appreciated. Cardiovascular: Regular rate and rhythm with a normal S1 and S2. No gallops, murmurs, or rubs. Normal PMI, no JVD. No pulse deficits. Respiratory: Lungs have equal breath sounds bilaterally, clear to auscultation and percussion. No rales, rhonchi or wheezes noted. No increased work of breathing, no retractions or nasal flaring. Abdomen/GI: Soft, non-tender, with normal bowel sounds. No distension or tympany. No guarding or rebound. No evidence of tenderness throughout. Skin: Warm, dry with normal turgor. Normal color with no rashes, no lesions, and no evidence of cellulitis. MS/ Extremity: Pulses equal, no cyanosis. Neurovascular intact. Full, normal range of motion. Neuro: Awake and alert, GCS 15, oriented to person, place. Cranial nerves II-XII grossly intact. Motor strength 5/5 in all extremities. Sensory grossly intact. Cerebellar exam normal. Vital Signs: 10/30 23:47 BP 136 / 65; Pulse 79; Resp 16; Pulse Ox 98% on R/A; jb4 23:49 BP 136 / 65; Pulse 73; Resp 18 S; Temp 98.7(O); Pulse Ox 98% on R/A; bb 10/31 01:00 BP 119 / 70; Pulse 64; Resp 16; Pulse Ox 98% on R/A; jb4 02:00 BP 104 / 63; Pulse 59; Resp 16; Pulse Ox 97% on R/A; jb4 04:46 Temp 98.6(O); jb4 Jeff Coma Score: 00:00 Eye Response: spontaneous(4). Verbal Response: confused(4). Motor Response: obeys jb4 commands(6). Total: 14. MDM: 00:24 Patient medically screened. kb 00:38 Data reviewed: vital signs, nurses notes. Data interpreted: Pulse oximetry: on room air kb is 98 %. Interpretation: normal. Counseling: I had a detailed discussion with the patient and/or guardian regarding: the historical points, exam findings, and any diagnostic results supporting the discharge/admit diagnosis, the need for further work-up and treatment in the hospital. 00:38 Physician consultation: Rina Lomas MD was contacted at 00:39, regarding admission, kb to the medical/surgical unit. patient's condition, and will see patient in ED, shortly. 00:48 ED course: Discussed case with Dr Macdonald and Dr Espino. Will admit for social work coordinator kb consult. . Administered Medications: 00:59 Drug: Keppra 1000 mg Route: PO; jb4 03:20 Follow up: Response: No adverse reaction jb4 Disposition: 10/31/18 00:50 Hospitalization ordered by Rina Lomas for Observation. Preliminary diagnosis are Epilepsy and recurrent seizures, Altered mental status, unspecified. - Bed requested for Telemetry/MedSurg (observation). - Status is Observation. sv - Condition is Stable. - Problem is new. - Symptoms are unchanged. UTI on Admission? No Addendum: 11/06/2018 07:23 Co-signature as Attending Physician, Laci Macdonald MD. g s Signatures: Mahi Hanley, JENNIFERC OBDULIO-Isidra Peterson RN Cathie Geronimo RN Tran Sanz RN Salvador Jacques RN RN jb4 Starr, Gregory, MD MD gs Corrections: (The following items were deleted from the chart) 10/31 00:49 00:39 Constitutional: This is a well developed, well nourished patient who is awake, kb alert, and in no acute distress. Head/Face: Normocephalic, atraumatic. ENT: Nares patent. No nasal discharge, no septal abnormalities noted. Tympanic membranes are normal and external auditory canals are clear. Oropharynx with no redness, swelling, or masses, exudates, or evidence of obstruction, uvula midline. Mucous membranes moist. Neck: Trachea midline, no thyromegaly or masses palpated, and no cervical lymphadenopathy. Supple, full range of motion without nuchal rigidity, or vertebral point tenderness. No Meningismus. Chest/axilla: Normal chest wall appearance and motion. Nontender with no deformity. No lesions are appreciated. Cardiovascular: Regular rate and rhythm with a normal S1 and S2. No gallops, murmurs, or rubs. Normal PMI, no JVD. No pulse deficits. Respiratory: Lungs have equal breath sounds bilaterally, clear to auscultation and percussion. No rales, rhonchi or wheezes noted. No increased work of breathing, no retractions or nasal flaring. Abdomen/GI: Soft, non-tender, with normal bowel sounds. No distension or tympany. No guarding or rebound. No evidence of tenderness throughout. Skin: Warm, dry with normal turgor. Normal color with no rashes, no lesions, and no evidence of cellulitis. MS/ Extremity: Pulses equal, no cyanosis. Neurovascular intact. Full, normal range of motion. Neuro: Awake and alert, GCS 15, oriented to person, place, time, and situation. Cranial nerves II-XII grossly intact. Motor strength 5/5 in all extremities. Sensory grossly intact. Cerebellar exam normal. Normal gait. kb 01: 00:50 Hospitalization Ordered by Rina Lomas MD for Observation. Preliminary bb diagnosis is Epilepsy and recurrent seizures; Altered mental status, unspecified. Bed requested for Telemetry/MedSurg (observation). Status is Observation. Condition is Stable. Problem is new. Symptoms are unchanged. UTI on Admission? No. kb 05:31 01:10 10/31/2018 00:50 Hospitalization Ordered by Rina Lomas MD for Observation. mw Preliminary diagnosis is Epilepsy and recurrent seizures; Altered mental status, unspecified. Bed requested for [facility] ER HOLD. Status is Observation. Condition is Stable. Problem is new. Symptoms are unchanged. UTI on Admission? No. bb 07:41 05:31 10/31/2018 00:50 Hospitalization Ordered by Rina Lomas MD for Observation. sv Preliminary diagnosis is Epilepsy and recurrent seizures; Altered mental status, unspecified. Bed requested for Telemetry/MedSurg (observation). Status is Observation. Condition is Stable. Problem is new. Symptoms are unchanged. UTI on Admission? No. mw
[2018-10-31] MEDS ORDERED: levETIRAcetam 500 MG TAB ONE (01:06)
[2018-10-31] MEDS: NA CHLORIDE 0.9% 1,000 ML IV SCH ×3 (01:51→20:34)
[2018-10-31] MEDS ORDERED: NA CHLORIDE 0.9% 1,000 ML ONE (02:41)
--- NOTE | 2018-10-31 05:38 | P.HP ---
Certification for Inpatient Patient admitted to: Observation With expected LOS: <2 Midnights Practitioner: I am a practitioner with admitting privileges, knowledge of patient current condition, hospital course, and medical plan of care. Services: Services provided to patient in accordance with Admission requirements found in Title 42 Section 412.3 of the Code of Federal Regulations Patient History Date of Service: 10/31/18 Reason for admission: seizure disorder History of Present Illness: Mr Almonte is a 67 years old male with history of seizure disorder, who came to ED initially complaining of testicular and groin area pain. Lab work was mostly unremarkable, testicular US was negative. The patient was diagnosed with groin cellulitis, prescribed Bactrim and discharged home. However, while the patient was in ED waiting for paperwork, had a tonic-clonic seizure episode. The episode last for about 1 minute, and was self-limited. Subsequently he remain on post-ictal status. Gradually he recover his conscious, however, he was not able to provide any family contact number to pick him up. Police department was contacted to help to looking for family members but it was unsuccessful. Therefore, the patient will be admitted under observation overnight since is not safe to discharge this patient without supervision at this time. 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 moist/pink, EOMI, Sclerae nonicteric Neck: Supple, 2+ carotid pulse no bruit, No LAD, Without JVD or thyroid abnormality Respiratory: Clear to auscultation bilaterally, Normal air movement Cardiovascular: Regular rate/rhythm, Normal S1 S2 Gastrointestinal: Normal bowel sounds, No tenderness Musculoskeletal: No tenderness Integumentary: Rash(es) (scrotum and right ezra) Neurological: Normal speech, Normal strength at 5/5 x4 extr, Normal tone, Normal affect Lymphatics: No axilla or inguinal lymphadenopathy Assessment and Plan - Problems (Diagnosis) (1) Cellulitis Current Visit: Yes Status: Acute Qualifiers: Site of cellulitis: other site Qualified Code(s): L03.818 - Cellulitis of other sites (2) Seizures Onset Date: 06/23/16 Current Visit: No Status: Chronic - Plan The patient will be admitted to the hospital until family is available to pick him up. Will resume his home medication once verified, continue empiric treatment with oral Bactrim, also will add antimycotic ointment for potential fungal infection. - Advance Directives Does patient have a Living Will: No Does patient have a Durable POA for Healthcare: No - Code Status/Comfort Care Code Status Assessed: Yes Code Status: Full Code
[2018-10-31] MEDS: RISPERIDONE 1 MG TABLET PO SCH ×2 (09:00→20:35)
[2018-10-31] MEDS ORDERED: PNEUMOCOCCAL VACCINE 0.5 ML IMVAC ONE (10:00)
[2018-10-31] MEDS: levETIRAcetam 500 MG TAB PO SCH ×2 (12:00→20:34)
--- NOTE | 2018-10-31 14:40 | P.DS ---
Admission Date: 10/31/18 Discharge Date: 10/31/18 Primary Care Provider: Dr. De Los Santos Disposition: ROUTINE DISCHARGE Discharge Condition: GOOD Reason for Admission: seizure disorder Consultations: none Procedures: Scrotal US: FINDINGS: Right testicle measures 4.4 x 2.2 x 2.9 centimeters. Echotexture is homogeneous. Normal blood flow Left testicle measures 4.7 x 2 x 3.4 centimeters. Echotexture is homogeneous. Normal blood flow The epididymides are normal in size and echotexture. Normal blood flow is seen. IMPRESSION: Unremarkable exam Medical Problem list: Dermatitis secondary to Letty infection to the groin region Seizure disorder Chronic mental illness suspect bipolar disorder Dementia Brief History of Present Illness: 67-year-old male with history of seizure disorder cane because of scrotal pain. Patient was evaluated in the emergency room. Mild dermatitis was suspected. Upon discharge patient had seizure. This was mild. Patient was monitored overnight. Patient reports compliance with seizure medication. Hospital Course: Patient presented with groin pain. Scrotal ultrasound negative. CBC unremarkable. Patient likely has dermatitis secondary to Letty. Patient was to be discharged from the emergency room but had a seizure. Patient with underlying seizure disorder. At discharge patient will continue with nystatin cream twice daily for 1 week. He is to keep the area dry. Patient may follow up with his PCP to further monitor. Patient had seizure. Patient with history of seizure disorder. Compliance addressed in detail. At discharge he will continue with his medication Keppra 500 mg 2 pills at bedtime. Patient may follow up with neurology within 1-2 weeks to follow up this hospitalization. Patient with chronic mental illness. Suspect bipolar disorder. Patient will continue with fluoxetine 10 mg daily and risperidone 4 mg 1 pill daily. Patient will follow up with psychiatry as directed. Patient may have underlying dementia as the patient is taking Namzaric 28/10 mg daily. He may continue with this medication and follow up with neurology. Vital Signs/Physical Exam: Temp Pulse Resp BP Pulse Ox 97.2 F 55 18 109/62 97 10/31/18 12:00 10/31/18 12:00 10/31/18 12:00 10/31/18 12:00 10/31/18 12:00 General: Alert, In no apparent distress, Oriented x3, Cooperative HEENT: Atraumatic Neck: Supple Respiratory: Clear to auscultation bilaterally, Normal air movement Cardiovascular: Normal pulses, Regular rate/rhythm Gastrointestinal: Normal bowel sounds, Soft and benign, Non-distended, No tenderness, No masses, No rebound, No guarding Musculoskeletal: No erythema, No tenderness, No warmth Integumentary: No tenderness/swelling, No erythema, No warmth, No cyanosis Neurological: Normal speech, Normal strength at 5/5 x4 extr, Normal tone, Normal affect Home Medications: Fluoxetine HCl 20 mg PO DAILY 10/31/18 Levetiracetam [Keppra] 2 tab PO BEDTIME 10/31/18 Memantine HCl/Donepezil HCl [Namzaric 28 mg-10 mg Capsule] 1 tab PO DAILY Nystatin Cream [Mycostatin 100MU/Gm Cream*] 15 appl TOP BID #1 tube 10/31/18 risperiDONE [Risperidone] 4 mg PO BEDTIME 10/31/18 New Medications: Nystatin Cream [Mycostatin 100MU/Gm Cream*] 15 appl TOP BID #1 tube Patient Discharge Instructions: 1. Patient will follow up with his PCP within 1 week to follow this hospitalization. 2. Patient presented with groin pain. Scrotal ultrasound negative. CBC unremarkable. Patient likely has dermatitis secondary to Letty. Patient was to be discharged from the emergency room but had a seizure. Patient with underlying seizure disorder. At discharge patient will continue with nystatin cream twice daily for 1 week. He is to keep the area dry. Patient may follow up with his PCP to further monitor. 3. Patient had seizure. Patient with history of seizure disorder. Compliance addressed in detail. At discharge he will continue with his medication Keppra 500 mg 2 pills at bedtime. Patient may follow up with neurology within 1-2 weeks to follow up this hospitalization. 4. Patient with chronic mental illness. Suspect bipolar disorder. Patient will continue with fluoxetine 10 mg daily and risperidone 4 mg 1 pill daily. Patient will follow up with psychiatry as directed. 5. Patient may have underlying dementia as the patient is taking Namzaric 28/10 mg daily. He may continue with this medication and follow up with neurology. Diet: AHA Activity: Fall precautions Time spent managing pt's care (in minutes): 55
--- NOTE | 2018-10-31 15:51 | RAD REPORT ---
EXAM DESCRIPTION: RAD - Shoulder Right 2 View - 10/31/2018 3:32 pm CLINICAL HISTORY: status post fall Fall, shoulder pain COMPARISON: No comparisons FINDINGS: No fracture or dislocation of the right shoulder is seen. Right-sided shunt tubing is pres ent.
--- NOTE | 2018-10-31 15:52 | RAD REPORT ---
EXAM DESCRIPTION: RAD - Hip Right 2 View - 10/31/2018 3:33 pm CLINICAL HISTORY: status post fall Fall, pain COMPARISON: Hip Right 2 View dated 06/14/2018 FINDINGS: Frontal projection of the hip is somewhat limited by internal rotation. No fracture or dis location of the right suspected. If the patient has difficulty with weight-bearing, MR imaging would be recommended for followup.
[2018-10-31] MEDS: ATORVASTATIN 10 MG TAB PO SCH (20:34)
[2018-11-01 04:52] LABS: Absolute Lymphocytes (CBC) 2.3 K/uL (0.7-4.9); Absolute Monocytes 0.6 K/uL (0.1-1.3); Basophils % 0.3 % (0-1.3); Eosinophils % 1.5 % (0-4.4); Hematocrit 39.2 % (39.6-49.0); Lymphocytes % 28.6 % (15.3-44.8); MPV 7.6 fL (7.6-11.3); Monocytes % 7.7 % (3.3-12.3); RBC Red Blood Cell Count 4.07 M/uL (4.33-5.43)
[2018-11-01] MEDS: NA CHLORIDE 0.9% 1,000 ML IV SCH (07:51)
[2018-11-01] MEDS: levETIRAcetam 500 MG TAB PO SCH ×2 (08:32→20:49)
[2018-11-01] MEDS: RISPERIDONE 1 MG TABLET PO SCH ×2 (08:36→20:50)
[2018-11-01 19:08] LABS: Urine Appearance CLEAR; Urine Bilirubin NEGATIVE (NEG); Urine Blood 1+ (NEG); Urine Color YELLOW; Urine Glucose NEGATIVE (NEG); Urine Protein NEGATIVE (NEG); Urine Urobilinogen 0.2 mg/dL (0.2-1.0); Urine pH 6.5 (5.0-7.0)
[2018-11-01 20:43] LABS: Urine Bacteria <20 /HPF (NONE SEEN); Urine Culture Reflex Order NOT NEEDED; Urine RBC <5 /HPF (NONE SEEN)
[2018-11-01] MEDS: ATORVASTATIN 10 MG TAB PO SCH (20:50)
[2018-11-02] MEDS: levETIRAcetam 500 MG TAB PO SCH (08:14)
[2018-11-02] MEDS ORDERED: HOME MED 1 EA UNK (Memantine Hcl/Donepezil Hcl [Namzaric 28 Mg-10 Mg Capsule] 1 TAB) PO SCH (09:00)
[2018-11-02] MEDS ORDERED: FLUOXETINE 20 MG CAP PO SCH (09:00)
[2018-11-02] MEDS ORDERED: RISPERIDONE 1 MG TABLET PO SCH (21:00)
== END 2018-11-02 11:38 | disposition home or self-care (01) ==
LOC: ER 23:33 → ERHOLD 10-31 01:16 → 4TH 10-31 07:31
PROVIDERS: ADMIT Internal Medicine; ATTEND Internal Medicine
DX: L30.9 Dermatitis, unspecified (principal); B37.2 Candidiasis of skin and nail; G40.909 Epilepsy, unspecified, not intractable, without status epilepticus; F03.90 Unspecified dementia, unspecified severity, without behavioral disturbance, psychotic disturbance, mood disturbance, and anxiety; F99 Mental disorder, not otherwise specified; Z86.12 Personal history of poliomyelitis
CPT/HCPCS: 36415; 73030; 73502; 80048; 81001; 85025; 94760 ×5; 99285; G0378; G0379; J7030 ×2

== ENCOUNTER 2020-08-07 11:17 | Observation (INO) | payer OTHER ==
[2020-08-07 12:14] LABS: Absolute Lymphocytes (CBC) 0.8 K/uL (0.7-4.9); Basophils % 0.2 % (0-1.3); Hematocrit 36.1 % (39.6-49.0); Lymphocytes % 6.4 % (15.3-44.8); MPV 7.5 fL (7.6-11.3); RBC Red Blood Cell Count 3.77 M/uL (4.33-5.43)
[2020-08-07 12:18] LABS: Protime INR 1.23
[2020-08-07 12:32] LABS: ALT/SGPT 23 U/L (12-78); AST/SGOT 20 U/L (15-37); Albumin 3.3 g/dL (3.4-5.0); Alkaline Phosphatase 77 U/L (45-117); BUN Blood Urea Nitrogen 19 mg/dL (7-18); Bicarbonate 28 mmol/L (21-32); Bilirubin Direct 0.1 mg/dL (0-0.2); Bilirubin Total 0.4 mg/dL (0.2-1.0); Glucose Level 92 mg/dL (74-106); Magnesium 2.7 mg/dL (1.8-2.4); NT PRO-BNP 467 pg/mL (<125); Potassium 3.8 mmol/L (3.5-5.1); Protein, Total 7.2 g/dL (6.4-8.2); Sodium Level 139 mmol/L (136-145); Troponin (Emerg Dept Use Only) < 0.02 ng/mL (0.0-0.045)
--- NOTE | 2020-08-07 12:36 | RAD REPORT ---
EXAM DESCRIPTION: CT - Head C Spine Cap Wo Con - 08/07/2020 12:12 pm CLINICAL HISTORY: Trauma, head and neck injury. Chest, abdomen and pelvis pain. fall COMPARISON: Head Brain Wo Cont dated 11/06/2016 TECHNIQUE: CT head without contrast. CT cervical spine without contrast with coronal and sagittal reformatted images. CT chest, abdomen and pelvis without contrast with coronal and sagittal reformatted images of the spi ne. All CT scans are performed using dose optimization technique as appropriate and may include automated exposure control or mA/KV adjustment according to patient size. FINDINGS: CT HEAD WITHOUT CONTRAST: Multiple ventriculostomy tubes are noted. 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 Focal left frontal schizencephalic defect is present. No acute hemorrhage is seen. No significant midline shift. These intracranial find ings appear essentially unchanged since 2017 comparative study. The paranasal sinuses and mastoids are clear. CT CERVICAL SPINE WITHOUT CONTRAST: No fracture or subluxation. Mild cervical degenerative changes are present. The prevertebral soft tis sues are normal in thickness. CT CHEST, ABDOMEN, PELVIS WITHOUT CONTRAST: NOTE: Lack of contrast is a significant limitation in the assessment of trauma related findings. Spec ifically, solid organ, vascular and bowel evaluation is significantly limited. Scattered areas of submitted segmental atelectasis are present bilaterally. Focal pulmonary infiltrat e is seen.Trace pleural fluid present bilaterally. No evidence of intra-abdominal visceral injury, free fluid or free air is seen within the above detai led limitations. Shunt tubing is seen coiling in the abdomen. No pelvic mass or hematoma. Moderate lumbar degenerative changes. Proximal right femur shows cortical irregularity laterally with a sclerotic line present. This may represent incomplete impacted subcapital fracture of the right hi p. Advise clinical correlation in this region. IMPRESSION: Intracranial abnormalities are seen as detailed above, appearing chronic and unchanged s ramón 2017 prior study. The possibility of a subcapital fracture the proximal right femur which is impacted and incomplete is present. Advise clinical and/or imaging correlation.
--- NOTE | 2020-08-07 12:49 | RAD REPORT ---
EXAM DESCRIPTION: RAD - Chest Single View - 08/07/2020 12:41 pm CLINICAL HISTORY: TRAUMA Chest pain. COMPARISON: Chest Single View dated 10/30/2018; Chest Single View dated 06/27/2017; Chest Single View d ated 11/06/2016; Chest Single View dated 06/23/2016 FINDINGS: Portable technique limits examination quality. The lungs are grossly clear. The heart is normal in size. Shunt tubing traverses the chest. IMPRESSION: No acute intrathoracic process suspected.
--- NOTE | 2020-08-07 12:56 | RAD REPORT ---
EXAM DESCRIPTION: RAD - Elbow Right 3 View - 08/07/2020 12:43 pm CLINICAL HISTORY: PAIN Fall, pain COMPARISON: No comparisons FINDINGS: Moderate soft tissue swelling is seen about the elbow. No acute fracture or dislocation ev ident.
--- NOTE | 2020-08-07 12:57 | RAD REPORT ---
EXAM DESCRIPTION: RAD - Elbow Left 3 View - 08/07/2020 12:43 pm CLINICAL HISTORY: PAIN COMPARISON: No comparisons FINDINGS: Moderate soft tissue swelling is seen about the elbow. No acute fracture or dislocation.
[2020-08-07 14:03] LABS: Urine Blood 3+ (NEG); Urine Glucose NEGATIVE (NEG); Urine Protein 2+ (NEG)
--- NOTE | 2020-08-07 14:54 | EDPHYS ---
Physician Documentation [facility] Name: Tonio Almonte Age: 69 yrs Sex: Male : 1950 Arrival Date: 08/07/2020 Time: 11:25 Bed 6 Private MD: ED Physician Stew Scherer HPI: 08/07 17:47 This 69 yrs old Male presents to ER via EMS with complaints of Altered Mental kdr Status - fall yesterday. 17:47 The patient presents with confusion. Onset: The symptoms/episode began/occurred at an kdr unknown time. Possible causes: Dementia/ Head injury. Associated signs and symptoms: Pertinent positives: weakness. Current symptoms: In the emergency department the patient's symptoms are unchanged from the initial presentation. Patient's baseline: Neuro: alert but confused, Motor: no deficits, Ambulation: walks without assistance, Speech: the patient can speak but doesn't make sense, the patient has dementia. It is unknown whether or not the patient has had similar symptoms in the past. It is unknown whether or not the patient has recently seen a physician. Historical: - Allergies: 12:26 No Known Allergies; dm5 - Home Meds: 12:26 donepezil 10 mg Oral tab 1 tab twice a day [Active]; fluoxetine 20 mg Oral cap 1 cap dm5 once daily [Active]; levetiracetam 500 mg Oral tab 1 tab twice a day [Active]; Risperdal 4 mg Oral tab 1 tab once daily [Active]; - PMHx: 12:26 chronic mental illness; CVA; epilepsy; Dementia; dm5 - Immunization history:: Adult Immunizations unknown. - Social history:: Smoking status: unknown. ROS: 17:47 Constitutional: Negative for fever, chills, and weight loss, Eyes: Negative for injury, kdr pain, redness, and discharge, Neck: Negative for injury, pain, and swelling, Cardiovascular: Negative for chest pain, palpitations, and edema, Respiratory: Negative for shortness of breath, cough, wheezing, and pleuritic chest pain, Abdomen/GI: Negative for abdominal pain, nausea, vomiting, diarrhea, and constipation, Back: Negative for injury and pain, : Negative for injury, bleeding, discharge, and swelling, Skin: Negative for injury, rash, and discoloration. 17:47 MS/extremity: Positive for slight pain with ROM of right leg. Exam: 17:47 Constitutional: This is a well developed, well nourished patient who is awake, alert, kdr and in no acute distress. Head/Face: Normocephalic, atraumatic. Neck: Trachea midline, no thyromegaly or masses palpated, and no cervical lymphadenopathy. Supple, full range of motion without nuchal rigidity, or vertebral point tenderness. No Meningismus. Chest/axilla: Normal chest wall appearance and motion. Nontender with no deformity. No lesions are appreciated. Cardiovascular: Regular rate and rhythm with a normal S1 and S2. No gallops, murmurs, or rubs. Normal PMI, no JVD. No pulse deficits. Respiratory: Lungs have equal breath sounds bilaterally, clear to auscultation and percussion. No rales, rhonchi or wheezes noted. No increased work of breathing, no retractions or nasal flaring. Abdomen/GI: Soft, non-tender, with normal bowel sounds. No distension or tympany. No guarding or rebound. No evidence of tenderness throughout. Back: No spinal tenderness. No costovertebral tenderness. Full range of motion. 17:47 Skin: Appearance: injury, is not appreciated, no rash present. 17:47 Neuro: Orientation: to person, place, Not oriented to time, situation, Motor: moves all fours, Sensation: no obvious gross deficits. 18:38 ECG was reviewed by the Attending Physician. kdr Vital Signs: 11:20 BP 95 / 60; Pulse 75; Resp 18; Temp 98.5; Pulse Ox 99% on R/A; Weight 79.38 kg (R); dm5 Height 5 ft. 6 in. (167.64 cm); Pain 0/10; 14:10 BP 139 / 72; Pulse 66; Resp 16 S; Temp 98.2(O); Pulse Ox 98% on R/A; aa5 15:53 BP 123 / 62; Pulse 64; Resp 14; Pulse Ox 97% on R/A; jp3 17:00 BP 133 / 62; Pulse 70; Resp 16 S; Pulse Ox 97% on R/A; aa5 18:11 BP 139 / 82; Pulse 78; Resp 20 S; Temp 98.0(O); Pulse Ox 96% on R/A; aa5 19:30 BP 104 / 59; Pulse 79; Resp 19; Temp 98.5; Pulse Ox 98% ; rr5 20:00 BP 110 / 62; Pulse 80; Resp 19; Pulse Ox 98% ; rr5 21:09 BP 112 / 89; Pulse 77; Resp 16; Temp 98.4; Pulse Ox 99% ; rr5 11:20 Body Mass Index 28.25 (79.38 kg, 167.64 cm) dm5 MDM: 14:53 Patient medically screened. kdr 17:47 Data reviewed: vital signs, nurses notes. ED course: The patient had no home care and [facility] nursing staff was concerned that we would possibly fall or endure some other injury without placement in a care facility. 08/07 11:56 Order name: Basic Metabolic Panel; Complete Time: 13:15 5 08/07 18:44 Interpretation: Abnormal: BUN 19. la1 08/07 11:56 Order name: CBC with Diff; Complete Time: 13:15 5 08/07 11:56 Order name: LFT's; Complete Time: 13:15 5 08/07 11:56 Order name: Magnesium; Complete Time: 13:15 5 08/07 11:56 Order name: NT PRO-BNP; Complete Time: 13:15 5 08/07 11:56 Order name: PT-INR; Complete Time: 13:15 5 08/07 11:56 Order name: Troponin (emerg Dept Use Only); Complete Time: 13:15 5 08/07 11:56 Order name: XRAY Chest (1 view); Complete Time: 13:15 5 08/07 11:56 Order name: Head C Spine Cap Wo Con CT; Complete Time: 13:15 5 08/07 11:56 Order name: Elbow Right 3 View XRAY; Complete Time: 13:15 5 08/07 11:56 Order name: Elbow Left 3 View XRAY; Complete Time: 13:15 5 08/07 13:16 Order name: Hip Right 2 View XRAY; Complete Time: 15:14 kdr 08/07 13:49 Order name: Urine Dipstick--Ancillary (enter results); Complete Time: 14:17 bd 08/07 20:28 Order name: COVID-19 rv 08/07 11:56 Order name: EKG; Complete Time: 11:57 dm5 08/07 11:56 Order name: Cardiac monitoring; Complete Time: 12:17 [facility] 08/07 11:56 Order name: EKG - Nurse/Tech; Complete Time: 13:02 [facility] 08/07 11:56 Order name: IV Saline Lock; Complete Time: 12:17 [facility] 08/07 11:56 Order name: Labs collected and sent; Complete Time: 12:17 [facility] 08/07 11:56 Order name: O2 Per Protocol; Complete Time: 12:17 [facility] 08/07 11:56 Order name: O2 Sat Monitoring; Complete Time: 12:17 [facility] 08/07 11:56 Order name: Urine Dipstick-Ancillary (obtain specimen); Complete Time: 14:17 [facility] 08/07 13:16 Order name: Femur Right XRAY; Complete Time: 15:14 kdr EC:38 Rate is 55 beats/min. Rhythm is regular, Sinus bradycardia with No ectopy. QRS [place] is kdr Normal. [place] interval is normal. QRS interval is normal. Clinical impression: Sinus bradycardia. Administered Medications: No medications were administered Disposition: 08/07/20 17:33 Hospitalization ordered by Viktor Red for Observation. Preliminary diagnosis are Weakness, Other slipping, tripping and stumbling and falls, Confusional arousals, Pneumonia, unspecified organism. - Bed requested for Telemetry/MedSurg (observation). - Status is Observation. rr5 - Condition is Fair. - Problem is an ongoing problem. - Symptoms have worsened. Signatures: Dispatcher [employer] EDKS Arleen Mayorga RN RN dm5 Stew Scherer MD MD kdr Walter [place], HEALTH PHYSICIST-C HEALTH PHYSICIST-Cla1 Ana María Davis, RN RN Jarrod Miller, RN RN rr5 Corrections: (The following items were deleted from the chart) 15:15 14:53 Hospitalization Ordered by Viktor Red DO for Inpatient Admission. 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 Bed requested for Telemetry/MedSurg (Inpatient). Status is Inpatient Admission. Condition is Fair. Problem is new. Symptoms have improved. kdr 17:30 15:16 08/07/2020 15:16 Discharged to Home. Impression: Other slipping, tripping and kdr stumbling and falls. Condition is Stable. Forms are Medication Reconciliation Form, Thank You Letter, Antibiotic Education, Prescription Opioid Use. Follow up: Private Physician; When: 2 - 3 days; Reason: If symptoms return, Further diagnostic work-up, Recheck today's complaints, Continuance of care, Re-evaluation by your physician. Problem is new. Symptoms are resolved. kdr 20:38 17:33 Hospitalization Ordered by Viktor Red DO for Observation. Preliminary cg diagnosis is Weakness; Other slipping, tripping and stumbling and falls; Confusional arousals; Pneumonia, unspecified organism. Bed requested for Telemetry/MedSurg (observation). Status is Observation. Condition is Fair. Problem is an ongoing problem. Symptoms have worsened. kdr 21:44 20:38 08/07/2020 17:33 Hospitalization Ordered by Viktor Red DO for Observation. rr5 Preliminary diagnosis is Weakness; Other slipping, tripping and stumbling and falls; Confusional arousals; Pneumonia, unspecified organism. Bed requested for Telemetry/MedSurg (observation). Status is Observation. Condition is Fair. Problem is an ongoing problem. Symptoms have worsened. cg
--- NOTE | 2020-08-07 14:54 | ER ---
Nurse's Notes [facility] Name: Tonio Almonte Age: 69 yrs Sex: Male : 1950 Arrival Date: 08/07/2020 Time: 11:25 Bed 6 Private MD: Diagnosis: Weakness;Other slipping, tripping and stumbling and falls;Confusional arousals;Pneumonia, unspecified organism Presentation: 08/07 11:20 Chief complaint: EMS states: pt fell yesterday and has been having increased limping dm5 and confusion. Coronavirus screen: Client denies travel out of the [place] in the last 14 days. At this time, the client does not indicate any symptoms associated with coronavirus-19. Ebola Screen: Patient negative for fever greater than or equal to 101.5 degrees Fahrenheit, and additional compatible Ebola Virus Disease symptoms Patient denies exposure to infectious person. Patient denies travel to an Ebola-affected area in the 21 days before illness onset. No symptoms or risks identified at this time. Initial Sepsis Screen: Does the patient meet any 2 criteria? No. Patient's initial sepsis screen is negative. Does the patient have a suspected source of infection? Yes: Dysuria/Frequency/Urgency/UTI. Risk Assessment: Do you want to hurt yourself or someone else? Patient reports no desire to harm self or others. Onset of symptoms was August 06, 2020. 11:20 Method Of Arrival: EMS: [facility] dm5 11:20 Acuity: OPAL 3 dm5 Triage Assessment: 11:20 General: Appears uncomfortable, Behavior is calm, cooperative, drowsy. Pain: Complains dm5 of pain in right elbow and left elbow. Neuro: Oriented to person, place. Respiratory: Airway is patent Respiratory effort is even, unlabored. : No deficits noted. pt wearing a brief, possible UTI?. Derm: Skin is pink, warm \\T\\ dry. Bruising that is dark purple, bilateral elbows. Historical: - Allergies: 12:26 No Known Allergies; dm5 - Home Meds: 12:26 donepezil 10 mg Oral tab 1 tab twice a day [Active]; fluoxetine 20 mg Oral cap 1 cap dm5 once daily [Active]; levetiracetam 500 mg Oral tab 1 tab twice a day [Active]; Risperdal 4 mg Oral tab 1 tab once daily [Active]; - PMHx: 12:26 chronic mental illness; CVA; epilepsy; Dementia; dm5 - Immunization history:: Adult Immunizations unknown. - Social history:: Smoking status: unknown. Screenin:10 Abuse screen: No signs of abuse noted. Nutritional screening: No deficits noted. aa5 Tuberculosis screening: No symptoms or risk factors identified. Fall Risk Fall in past 12 months (25 points). IV access (20 points). Mental Status- Overestimates/Forgets Limitations (15 pts.). Total Perry Fall Scale indicates High Risk Score (45 or more points). Fall prevention measures have been instituted. Side Rails Up X 2 Placed Close to Nursing Station. Assessment: 14:10 General: Appears comfortable, Behavior is calm, cooperative. Pain: Complains of pain in aa5 pt states "all over". Neuro: Level of Consciousness is awake, obeys commands, confused, Oriented to person, place, time, Contour Sander are equal bilaterally Moves all extremities. Speech is normal. Cardiovascular: Heart tones S1 S2 present Rhythm is sinus rhythm. Respiratory: Airway is patent Respiratory effort is even, unlabored, Respiratory pattern is regular, symmetrical. GI: Abdomen is round non-distended, Bowel sounds present X 4 quads. Abd is soft and non tender X 4 quads. : Kearns in place to gravity drainage. EENT: No signs and/or symptoms were reported regarding the EENT system. Derm: Skin is pink, warm \\T\\ dry. Right elbow with dark red bruising noted. Abrasions noted to right elbow. Left elbow with superficial laceration that is approximately 0.5 in long, 2 other lacerations noted to left elbow that are superficial and small. 14:40 Reassessment: Pt resting in bed with eyes closed, respirations even and unlabored, skin aa5 is pink/warm/dry. . 15:20 Reassessment: Pt out of bed walking around bed with steady gait noted. Placed pt back aa5 in bed. Side rails remain x 2 and bed in low position. Pt confused A\\T\\O x person and place, able to follow commands. . 15:39 Reassessment: Attempted to call pt's family (Irais Almonte), left voice mail to call back aa5 to ER. . 15:40 Reassessment: Pt resting in bed with eyes closed, respirations even and unlabored, skin aa5 is pink/warm/dry. NSR on monitor. . 16:27 Reassessment: Spoke to Irais Almonte (pt's [id number]) over the phone. Mrs. Almonte aa5 states that pt lives alone and has member of parliament that only goes to his house from 8am to 1pm, states "I am the only family he has and I am unable to take care of him and I don't feel like he is safe living by himself anymore". Pt's family reports deteriorating dementia x 6 months ago. MD was notified of family's concerns. . 16:40 Reassessment: Pt remains in bed resting with eyes closed, respirations even and aa5 unlabored, skin is pink/warm/dry. . 16:50 Reassessment: ER director (Arleen Harrison) spoke to director of social work and Nina (with aa5 director of social work) reports pt will have to be admitted for social service consult and possible need for placement in [place] [facility]. was notified. . 18:00 Neuro: Level of Consciousness is awake, obeys commands, confused, Oriented to person, aa5 place. Respiratory: Airway is patent Respiratory effort is even, unlabored, Respiratory pattern is regular, symmetrical. Derm: Skin is pink, warm \\T\\ dry. 18:20 Reassessment: Pt sitting up in bed eating dinner, pt tolerating well. . aa5 19:14 Reassessment: [phone] sister contact number. rr5 19:30 General: Appears in no apparent distress. comfortable, Behavior is calm, cooperative. rr5 Neuro: Level of Consciousness is awake, obeys commands, confused, Oriented to person. Cardiovascular: Capillary refill < 3 seconds Patient's skin is warm and dry. Respiratory: Airway is patent Respiratory effort is even, unlabored, Respiratory pattern is regular, symmetrical. GI: Abdomen is round non-distended. Derm: Skin is pink, warm \\T\\ dry. Musculoskeletal: Capillary refill < 3 seconds. 20:30 Reassessment: Patient appears in no apparent distress at this time. Patient and/or rr5 family updated on plan of care and expected duration. Pain level reassessed. awaiting for room assignment. 21:30 Reassessment: Patient appears in no apparent distress at this time. transfer to room rr5 awake vital signs taken and recorded. Vital Signs: 11:20 BP 95 / 60; Pulse 75; Resp 18; Temp 98.5; Pulse Ox 99% on R/A; Weight 79.38 kg (R); dm5 Height 5 ft. 6 in. (167.64 cm); Pain 0/10; 14:10 BP 139 / 72; Pulse 66; Resp 16 S; Temp 98.2(O); Pulse Ox 98% on R/A; aa5 15:53 BP 123 / 62; Pulse 64; Resp 14; Pulse Ox 97% on R/A; jp3 17:00 BP 133 / 62; Pulse 70; Resp 16 S; Pulse Ox 97% on R/A; aa5 18:11 BP 139 / 82; Pulse 78; Resp 20 S; Temp 98.0(O); Pulse Ox 96% on R/A; aa5 19:30 BP 104 / 59; Pulse 79; Resp 19; Temp 98.5; Pulse Ox 98% ; rr5 20:00 BP 110 / 62; Pulse 80; Resp 19; Pulse Ox 98% ; rr5 21:09 BP 112 / 89; Pulse 77; Resp 16; Temp 98.4; Pulse Ox 99% ; rr5 11:20 Body Mass Index 28.25 (79.38 kg, 167.64 cm) dm5 ED Course: 11:20 Arm band placed on Patient placed in an exam room, on a stretcher. dm5 11:25 Patient arrived in ED. dm5 11:52 Arleen Mayorga, RN is Primary Nurse. dm5 12:05 Initial lab(s) drawn, by ok, sent to lab. Inserted saline lock: 20 gauge in left wrist, jp3 using aseptic technique. Blood collected. 12:05 Patient maintains SpO2 saturation greater than 95% on room air. jp3 12:11 CT completed. Patient tolerated procedure well. Patient moved to CT via stretcher. Patient moved to radiology Patient moved back from CT. 12:11 Head C Spine Cap Wo Con CT In Process Unspecified. EDMS 12:15 Warm blanket given. Verbal reassurance given. shelter monitor on. Pulse ox on. NIBP on. jp3 12:23 Stew Scherer MD is Attending Physician. kdr 12:24 Triage completed. dm5 12:38 XRAY Chest (1 view) In Process Unspecified. EDMS 12:38 Elbow Right 3 View XRAY In Process Unspecified. EDMS 12:38 Elbow Left 3 View XRAY In Process Unspecified. EDMS 13:01 EKG done, by ED staff, reviewed by Stew Scherer MD. jp3 13:25 Urine collected: Kearns catheter specimen, clear, lindsey colored, Amount Returned: 120mL. jp3 13:25 Kearns cath inserted, using sterile technique, 18 Fr., by ok, balloon inflated, to jp3 gravity drainage, urine specimen collected. 14:00 Report received from CHRISSY Bacon. aa5 14:10 Patient has correct armband on for positive identification. Bed in low position. Side aa5 rails up X2. shelter monitor on. Pulse ox on. NIBP on. 14:20 Hip Right 2 View XRAY In Process Unspecified. EDMS 14:20 Femur Right XRAY In Process Unspecified. EDMS 14:52 Viktor Red DO is Hospitalizing Provider. kdr 15:52 Kearns cath removed intact, balloon deflated. jp3 15:53 Wound care: to abrasion, located on right elbow and left elbow was debrided using jp3 Betadine scrub, dressed with Neosporin, band aid, Patient tolerated well. 17:31 Viktor Red DO is Hospitalizing Provider. kdr 19:00 Report given to CHRISSY Garay. aa5 20:30 covid. rr5 21:08 No provider procedures requiring assistance completed. Patient admitted, IV remains in rr5 place. intact, No redness/swelling at site. Administered Medications: No medications were administered Outcome: 14:53 Decision to Hospitalize by Provider. kdr 15:16 Discharge ordered by . kdr 17:33 Decision to Hospitalize by Provider. kdr 21:20 Admitted to Med/surg accompanied by tech, via stretcher, room 204, with chart, Report rr5 called to shweta 21:20 Condition: stable rr5 21:20 Instructed on the need for admit. 21:44 Patient left the ED. rr5 Signatures: Dispatcher [employer] EDMS Arleen Mayorga, CHRISSY RN dm5 Stew Scherer MD MD kdr Nicky Salgado RN RN aa5 Debra Montanez Jacob jp3 Jarrod Miller, RN RN rr5 Corrections: (The following items were deleted from the chart) 12: General: Appears uncomfortable, Behavior is calm, cooperative, drowsy, 5 dm5 12: Pain: Complains of pain in right elbow and left elbow dm5 dm5 12: Neuro: Oriented to person, place, 5 dm5 12: Respiratory: Airway is patent Respiratory effort is even, unlabored, 5 dm5 12: : No deficits noted. pt wearing a brief, possible UTI? dm5 dm5 12: Derm: Skin is pink, warm \\T\\ dry. Bruising that is dark purple, bilateral elbows. dm5 dm5 16:43 15:00 Reassessment: Pt resting in bed with eyes closed, respirations even and aa5 unlabored, skin is pink/warm/dry. . aa5 19:20 18:51 Reassessment: Pt remains in bed resting with eyes closed, respirations even and aa5 unlabored, skin is pink/warm/dry. . aa5
--- NOTE | 2020-08-07 14:59 | RAD REPORT ---
EXAM DESCRIPTION: RAD - Hip Right 2 View - 08/07/2020 2:20 pm CLINICAL HISTORY: Right hip pain FINDINGS: No fracture or dislocation is seen. Bones appear osteoporotic If patient continues have symptoms to suggest an occult fracture MRI would be recommended
--- NOTE | 2020-08-07 15:00 | RAD REPORT ---
EXAM DESCRIPTION: RAD - Femur Right - 08/07/2020 2:20 pm CLINICAL HISTORY: Leg pain FINDINGS: No fracture is seen. Bones appear osteoporotic
--- NOTE | 2020-08-07 20:13 | P.HP ---
Certification for Inpatient Patient admitted to: Observation With expected LOS: <2 Midnights Patient will require the following post-hospital care: None Practitioner: I am a practitioner with admitting privileges, knowledge of patient current condition, hospital course, and medical plan of care. Services: Services provided to patient in accordance with Admission requirements found in Title 42 Section 412.3 of the Code of Federal Regulations <Walter Wakefield - Last Filed: 08/07/20 20:06> Patient History Date of Service: 08/07/20 Primary Care Provider: Unknown Reason for admission: Weakness, Falls History of Present Illness: 61-year-old male with a known mental disorder presents emergency depa rtment for frequent falls, declining mental status, weakness. Patient's yupvne-vo-bxl who is his only family member around reports that he has been having declining mental status and frequent falls at home. Patient lives by himself, has clothing worker from 8 a.m. to 1:00 p.m. but is low on the rest of time. Sister believes that he is not safe home alone and believes he would be best suited placed into a skilled facility. Patient had multiple falls throughout the course the last few days with bruising noted to both arms. Questionable subcapital femur fracture report on CT scan but x-ray was negative. CT showed some atelectasis. ED provider wishes to admit patient under observation for further evaluation and management. When I saw the patient in the emergency department is awake, alert, oriented x3. Patient clearly has some mental disability. Will have patient evaluated by physical therapy and social work. 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 to 1:00 p.m.. - Family History Father -: Hypertension, Cancer - Social History Smoking Status: Never smoker Alcohol use: No CD- Drugs: No Caffeine use: Yes Place of Residence: Home <Walter Wakefield - Last Filed: 08/07/20 20:06> Date of Service: 08/13/20 Home medications list reviewed: Yes <Viktor Red - Last Filed: 08/13/20 13:59> Allergies No Known Allergies Allergy (Verified 06/23/16 01:14) Home Medications: Donepezil [Aricept*] 10 mg PO BID 08/08/20 Fluoxetine HCl 20 mg PO DAILY 08/08/20 Levetiracetam [Keppra] 500 mg PO BID 08/08/20 Risperidone 4 mg PO DAILY 08/08/20 Review of Systems is unable to be obtained <Walter Wakefield - Last Filed: 08/07/20 20:06> Physical Examination - Physical Exam General: Alert, In no apparent distress, Oriented x3, Other (speech slurred) HEENT: Other (poor dentition and hygeine ) Neck: Supple Respiratory: Clear to auscultation bilaterally, Normal air movement Cardiovascular: No edema, Regular rate/rhythm, Normal S1 S2 Capillary refill: <2 Seconds Gastrointestinal: Normal bowel sounds, Soft and benign Musculoskeletal: No contractures, No erythema, No tenderness, No warmth Integumentary: No significant lesion, No tenderness/swelling, No erythema Neurological: Normal speech, Normal strength at 5/5 x4 extr, Normal tone - Studies Laboratory Data (last 24 hrs) 08/07/20 12:05: PT 14.4 H, INR 1.23 08/07/20 12:05: WBC 12.3 H, Hgb 12.2 L, Hct 36.1 L, Plt Count 235 08/07/20 12:05: Sodium 139, Potassium 3.8, BUN 19 H, Creatinine 1.28, Glucose 92, Magnesium 2.7 H, Total Bilirubin 0.4, AST 20, ALT 23, Alkaline Phosphatase 77 <Walter Wakefield - Last Filed: 08/07/20 20:06> Assessment and Plan - Plan Assessment Impaired mobility, declining mental status likely secondary to worsening dementia Seizure disorder Unknown mental disorder Plan Impaired mobility, declining mental status likely secondary to worsening dementia: Will have patient evaluated by physical therapy to determine if it is safe for him to be discharged home. Social work consult in place for possible placement. Continue gentle hydration, fall precautions. DVT prophylaxis Lovenox 40 mg subcutaneous once daily. Seizure disorder: Continue home medications Unknown mental disorder: Continue home medications. Discharge Plan: Assisted Plan to discharge in: 24 Hours - Advance Directives Does patient have a Living Will: No Does patient have a Durable POA for Healthcare: No - Code Status/Comfort Care Code Status Assessed: Yes (Full code) Time Spent Managing Pts Care (In Minutes): 55 <Walter Wakefield - Last Filed: 08/07/20 20:06> - Plan Discussed with WARE CARRIER. Agree with plan of care. See progress note for details. <Viktor Red - Last Filed: 08/13/20 13:59>
[2020-08-07] MEDS ORDERED: RISPERIDONE 1 MG TABLET PO SCH (22:05)
[2020-08-07] MEDS ORDERED: ONDANSETRON 4 MG/2 ML VIAL IV PRN (22:05)
[2020-08-07] MEDS ORDERED: ACETAMINOPHEN 500 MG TAB PO PRN (22:05)
[2020-08-07] MEDS: NA CHLORIDE 0.9% 1,000 ML IV SCH (22:47)
[2020-08-07] MEDS: DONEPEZIL HCL 5 MG TAB PO SCH (22:51)
[2020-08-07] MEDS: levETIRAcetam 500 MG TAB PO SCH (22:51)
[2020-08-08 00:12] VITALS: BMI 25.8
[2020-08-08 06:26] LABS: Absolute Lymphocytes (CBC) 1.1 K/uL (0.7-4.9); Basophils % 0.4 % (0-1.3); Hematocrit 33.5 % (39.6-49.0); Lymphocytes % 10.3 % (15.3-44.8); MPV 7.7 fL (7.6-11.3); RBC Red Blood Cell Count 3.49 M/uL (4.33-5.43)
[2020-08-08 06:35] LABS: BUN Blood Urea Nitrogen 15 mg/dL (7-18); Bicarbonate 27 mmol/L (21-32); Glucose Level 83 mg/dL (74-106); Potassium 3.5 mmol/L (3.5-5.1); Sodium Level 140 mmol/L (136-145)
--- NOTE | 2020-08-08 07:56 | P.DS ---
Admission Date: 08/07/20 Discharge Date: 08/08/20 Primary Care Provider: Unknown Disposition: [place] HOME/HOME HEALTH CARE Discharge Condition: GOOD Reason for Admission: Weakness, Falls Consultations: none Procedures: CT Scan: COMPARISON: Head Brain Wo Cont dated 11/06/2016 TECHNIQUE: CT head without contrast. CT cervical spine without contrast with coronal and sagittal reformatted images. CT chest, abdomen and pelvis without contrast with coronal and sagittal reformatted images of the spine. All CT scans are performed using dose optimization technique as appropriate and may include automated exposure control or mA/KV adjustment according to patient size. FINDINGS: CT HEAD WITHOUT CONTRAST: Multiple ventriculostomy tubes are noted. 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 Focal left frontal schizencephalic defect is present. No acute hemorrhage is seen. No significant midline shift. These intracranial findings appear essentially unchanged since 2017 comparative study. The paranasal sinuses and mastoids are clear. CT CERVICAL SPINE WITHOUT CONTRAST: No fracture or subluxation. Mild cervical degenerative changes are present. The prevertebral soft tissues are normal in thickness. CT CHEST, ABDOMEN, PELVIS WITHOUT CONTRAST: NOTE: Lack of contrast is a significant limitation in the assessment of trauma related findings. Specifically, solid organ, vascular and bowel evaluation is significantly limited. Scattered areas of submitted segmental atelectasis are present bilaterally. Focal pulmonary infiltrate is seen.Trace pleural fluid present bilaterally. No evidence of intra-abdominal visceral injury, free fluid or free air is seen within the above detailed limitations. Shunt tubing is seen coiling in the abdomen. No pelvic mass or hematoma. Moderate lumbar degenerative changes. Proximal right femur shows cortical irregularity laterally with a sclerotic line present. This may represent incomplete impacted subcapital fracture of the right hip. Advise clinical correlation in this region. IMPRESSION: Intracranial abnormalities are seen as detailed above, appearing chronic and unchanged since 2017 prior study. The possibility of a subcapital fracture the proximal right femur which is impacted and incomplete is present. Advise clinical and/or imaging correlation. Follow up Hip Xray: CLINICAL HISTORY: Right hip pain FINDINGS: No fracture or dislocation is seen. Bones appear osteoporotic Follow up femur xray: CLINICAL HISTORY: Leg pain FINDINGS: No fracture is seen. 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 Patient's wmbsik-nz-lnw who is his only family member around reports that he has been having declining mental status and frequent falls at home. Patient lives by himself, has ophthalmic aide from 8 a.m. to 1:00 p.m. but is low on the rest of time. Sister believes that he is not safe home alone and believes he would be best suited placed into a skilled facility. Patient had multiple falls throughout the course the last few days with bruising noted to both arms. Questionable subcapital femur fracture report on CT scan but x-ray was negative. CT showed some atelectasis. ED provider wishes to admit patient under observation for further evaluation and management. Hospital Course: Patient presented after a fall. Patient with history of seizure disorder with brain shunt related to polio, dementia and depression with anxiety. Initial CT scan shows no acute finding. There was some suspicion of the right hip fracture. Follow up x-rays of the hip and femur are shows no fracture. The p atient also had some acute renal insufficiency related to dehydration. The patient has done well Overnite. Pain well controlled. Patient worked with physical therapy. Patient is taking care of by his [id number]. He also has caregiver services. Prior to discharge will arrange for home health and physical therapy. He may continue with caregiver services. Family should consider long-term placement in the future if to be counts difficult to take care of him. Fall precautions in place. Continue physical therapy recommendations. At discharge he will continue with his current medications- Aricept 10 mg 1 pill twice daily, fluoxetine 20 mg daily, Keppra 500 mg 1 pill twice daily, and Risperdal 4 mg daily. Recommend follow up with his PCP to further monitor and address., Vital Signs/Physical Exam: Temp Pulse Resp BP Pulse Ox 97.5 F 78 18 147/72 H 96 08/08/20 04:00 08/08/20 04:00 08/08/20 04:00 08/08/20 04:00 08/08/20 04:00 General: Alert, In no apparent distress, Cooperative HEENT: Atraumatic, Other (Poor dentition) Neck: Supple Respiratory: Clear to auscultation bilaterally, Normal air movement Cardiovascular: Normal pulses, Regular rate/rhythm Gastrointestinal: Normal bowel sounds, No tenderness, No masses, No rebound, No guarding Neurological: Normal speech, Normal strength at 5/5 x4 extr, Normal tone, Normal affect Laboratory Data at Discharge: WBC 10.5 K/uL (4.3-10.9) D 08/08/20 05:53 Hgb 11.5 g/dL (13.6-17.9) L 08/08/20 05:53 Hct 33.5 % (39.6-49.0) L 08/08/20 05:53 Plt Count 217 K/uL (152-406) 08/08/20 05:53 PT 14.4 SECONDS (9.5-12.5) H 08/07/20 12:05 INR 1.23 08/07/20 12:05 Sodium 140 mmol/L (136-145) 08/08/20 05:53 Potassium 3.5 mmol/L (3.5-5.1) 08/08/20 05:53 BUN 15 mg/dL (7-18) 08/08/20 05:53 Creatinine 0.73 mg/dL (0.55-1.3) 08/08/20 05:53 Glucose 83 mg/dL (74-106) 08/08/20 05:53 Magnesium 2.7 mg/dL (1.8-2.4) H 08/07/20 12:05 Total Bilirubin 0.4 mg/dL (0.2-1.0) 08/07/20 12:05 AST 20 U/L (15-37) 08/07/20 12:05 ALT 23 U/L (12-78) 08/07/20 12:05 Alkaline Phosphatase 77 U/L (45-117) 08/07/20 12:05 Home Medications: Donepezil [Aricept*] 10 mg PO BID 08/08/20 Fluoxetine HCl 20 mg PO DAILY 08/08/20 Levetiracetam [Keppra] 500 mg PO BID 08/08/20 Risperidone 4 mg PO DAILY 08/08/20 Patient Discharge Instructions: 1. Recommend follow up with PCP in 1 week to follow up this hospitalization. 2. Patient presented after a fall. Patient with history of seizure disorder with brain shunt related to polio, dementia and depression with anxiety. Initial CT scan shows no acute finding. There was some suspicion of the right hip fracture. Follow up x-rays of the hip and femur are shows no fracture. The patient also had some acute renal insufficiency related to dehydration. The patient has done well Overnite. Pain well controlled. Patient worked with physical therapy. Patient is taking care of by his hoogoj-li-mmv. He also has caregiver services. Prior to discharge will ar range for home health and physical therapy. He may continue with caregiver services. Family should consider long-term placement in the future if to be counts difficult to take care of him. Fall precautions in place. Continue physical therapy recommendations. At discharge he will continue with his current medications-Aricept 10 mg 1 pill twice daily, fluoxetine 20 mg daily, Keppra 500 mg 1 pill twice daily, and Risperdal 4 mg daily. Recommend follow up with his PCP to further monitor and address., Diet: Regular Activity: Fall precautions Followup: [facility] [Primary Care Provider] - Time spent managing pt's care (in minutes): 55
[2020-08-08] MEDS: DONEPEZIL HCL 5 MG TAB PO SCH ×2 (08:29→20:00)
[2020-08-08] MEDS: levETIRAcetam 500 MG TAB PO SCH ×2 (08:30→19:59)
[2020-08-08] MEDS: FLUOXETINE 20 MG CAP PO SCH (08:30)
[2020-08-08] MEDS: ENOXAPARIN 40 MG/0.4 ML SQ SCH (08:30)
[2020-08-08] MEDS: NA CHLORIDE 0.9% 1,000 ML IV SCH (08:32)
[2020-08-08] MEDS ORDERED: INFLUENZA VACCINE (for 3y+) 0.5 ML DOSE IMVAC ONE (09:00)
[2020-08-08] MEDS ORDERED: POTASSIUM CL SA 10 MEQ TAB PO ONE (09:00)
[2020-08-08] MEDS ORDERED: PNEUMOCOCCAL VACCINE 0.5 ML IMVAC ONE (09:00)
--- NOTE | 2020-08-08 15:09 | P.PN ---
Subjective Date of Service: 08/08/20 Primary Care Provider: Unknown Chief Complaint: Weakness, Falls Subjective: Other (Patient doing well today. Physical therapy reports patient high risk for fall at home. Unsafe to discharge on less with proper help) Physical Examination - Vital Signs Temperature: 98.1 F Blood Pressure: 140/64 Pulse: 72 Respirations: 17 Pulse Ox (%): 97 - Physical Exam General: Alert, In no apparent distress, Cooperative HEENT: Atraumatic Neck: Supple Respiratory: Clear to auscultation bilaterally, Normal air movement Cardiovascular: Normal pulses, Regular rate/rhythm Gastrointestinal: Normal bowel sounds Musculoskeletal: No tenderness, No warmth Integumentary: No tenderness/swelling, No erythema, No warmth, No cyanosis Neurological: Normal speech, Normal tone, Normal affect, Other (Patient with some weakness to the upper extremity on the right side.) - Studies Medications List Reviewed: Yes Assessment & Plan Discharge Plan: Other (Skilled placement) Plan to discharge in: 48 Hours Physician Review Additional Text: Impression: Fall with right hip pain, no fracture 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 Encourage oral intake. Patient evaluated by physical therapy. Patient unsafe for discharge on less patient has 24 hr supervision. Physical therapy recommends skilled placement or assisted living. I have called multiple times to the [id number]-[id number] without any success of reaching her to discuss plan of care. Social work also has called multiple times. There it been some discussion that the kplnvw-iy-nvb could no longer take care of him. CPS may need to be called. Will check with social work supervisor as far as what options we have for the patient. Will continue to reach out to family about plan of care. For now patient will continue in the hospital. Continue fall precaution. C ontinue physical therapy. 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 Depression with anxiety: Continue medication. Acute renal insufficiency secondary to dehydration: Patient better hydrated. Continue oral medication. Poor social situation: As stated above, I have tried to reach family without any success. Social work also has try to reach multiple times. Social work to consider calling CPS. This may represent some abandonment. Time Spent Managing Pts Care (In Minutes): 55
[2020-08-08] MEDS ORDERED: NA CHLORIDE 0.9% 1,000 ML IV SCH (16:00)
[2020-08-09 06:57] LABS: BUN Blood Urea Nitrogen 9 mg/dL (7-18); Bicarbonate 27 mmol/L (21-32); Glucose Level 83 mg/dL (74-106); Potassium 3.8 mmol/L (3.5-5.1); Sodium Level 138 mmol/L (136-145)
[2020-08-09] MEDS ORDERED: POTASSIUM CL SA 10 MEQ TAB PO ONE (07:25)
--- NOTE | 2020-08-09 08:42 | P.PN ---
Subjective Date of Service: 08/09/20 Primary Care Provider: Unknown Chief Complaint: Weakness, Falls Subjective: Other (Patient remains stable at this time. Physical therapy notes reviewed.) Physical Examination - Vital Signs Temperature: 97.3 F Blood Pressure: 123/76 Pulse: 67 Respirations: 18 Pulse Ox (%): 96 - Physical Exam General: Alert, In no apparent distress, Cooperative HEENT: Atraumatic Neck: Supple Respiratory: Clear to auscultation bilaterally, Normal air movement Cardiovascular: Normal pulses, Regular rate/rhythm Gastrointestinal: Normal bowel sounds, No tenderness, No masses, No rebound, No guarding Neurological: Abnormal strength (Some generalized weakness to the right side suspect chronic) - Studies Medications List Reviewed: Yes Assessment & Plan Discharge Plan: Other (Home verses skilled placement verses long-term care) Plan to discharge in: 48 Hours Physician Review Additional Text: Impression: Fall with right hip pain, no fracture 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 Patient better hydrated. Will discontinue IV fluids. I have called numerous times to the wcpiti-[id number]-lma yesterday without success. Social work also tried multiple times without success. Physical therapy recommends 24 hr care at home verses skilled placement verses long-term care. CPS called as it appears the family is not wanting to get involved. Will try again to discuss with family about skilled placement at the very least then consideration of transition to long-term care. Patient still unsafe to be discharge as recommended by physical therapy. Continue physical therapy. 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 Patient with decreased strength on the right side due to his post-polio syndrome. Depression with anxiety: Continue medication. Acute renal insufficiency secondary to dehydration: Patient better hydrated. Continue oral medication. Will discontinue IV fluids Poor social situation: As stated above, I have tried to reach family without any success. Social work also has try to reach multiple times. Social work to call CPS. This may be considered abandonment by family as it appears the patient's family is not responding to calls or has come by. Will continue to reach out to family about plan of care. Hopefully they will get involved to address the possibility of skilled placement and then hopefully to transition to long-term care. Time Spent Managing Pts Care (In Minutes): 55
[2020-08-09] MEDS: ENOXAPARIN 40 MG/0.4 ML SQ SCH (08:56)
[2020-08-09] MEDS: DONEPEZIL HCL 5 MG TAB PO SCH ×2 (08:57→21:19)
[2020-08-09] MEDS: RISPERIDONE 1 MG TABLET PO SCH (08:57)
[2020-08-09] MEDS: levETIRAcetam 500 MG TAB PO SCH ×2 (08:57→21:19)
[2020-08-09] MEDS: FLUOXETINE 20 MG CAP PO SCH (08:57)
--- NOTE | 2020-08-10 07:50 | EKG ---
Test Date: 2020-08-07 Test Time: 12:54:20 Certified Endoscopy Technician: WILLIAM MEASUREMENT RESULTS: Intervals: Rate: 55 [place]: 144 QRSD: 88 QT: 462 QTc: 441 [place]: P: 54 [place]: 144 QRS: 65 T: 69 INTERPRETIVE STATEMENTS: Sinus bradycardia Otherwise normal ECG Compared to ECG 09/29/2018 16:50:20 No significant changes Electronically Signed On 08-10-20 07:42:04 FLAME CUTTING MACHINE OPERATOR HELPER by Ranjith Cates
--- NOTE | 2020-08-10 07:51 | P.PN ---
Subjective Date of Service: 08/10/20 Primary Care Provider: Unknown Chief Complaint: Weakness, Falls Subjective: Other (Patient doing well this time. No complaints noted.) Physical Examination - Vital Signs Temperature: 98.5 F Blood Pressure: 138/77 Pulse: 68 Respirations: 18 Pulse Ox (%): 98 - Physical Exam General: Alert, In no apparent distress, Demented, Other (Patient answers some questions an cooperative. 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 She is the primary caregiver for the patient. Phone number is [phone]. She reports that it has been getting more difficult to take care of him. She understands that the patient needs 24 hr care/supervision. This was also recommended by physical therapy. Patient has caregiver services that help but is not comprehensive. Patient only sees Neurol ogy Dr. Montgomery. He has no PCP. Will have marriage and family social worker help arrange for PCP as an outpatient who can see the patient in a retirement setting. Advanced care planning address in detail. After long discussion, mahbbu-vx-nue is willing to help in coordination with marriage and family social worker to help arrange for skilled placement then eventually transition to retirement placement. Patient with dementia, all increased fall risk with history of post-polio syndrome. Patient would benefit highly with skilled placement then eventually to retirement placement. Patient will continue with physical therapy. Will pursue this. I will turn the service over to the hospitalist team tomorrow. I will go over the plan of care with him. 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 Montgomery as an outpatient. Continue medication. Patient with decreased strength on the right side due to his post-polio syndrome. Physical therapy to continued work with physical therapy and help transition to skilled placement then retirement placement. Depression with anxiety: Continue medication. Acute renal insufficiency secondary to dehydration: Patient better hydrated. Continue oral medication. Encourage oral intake. IV fluids discontinued. Poor social situation: As stated above. I was able to get in contact with kiedar-mq-sla. Will pursue skilled placement then eventual transition to retirement. Continue as above. Time Spent Managing Pts Care (In Minutes): 55
[2020-08-10] MEDS ORDERED: POTASSIUM CL SA 10 MEQ TAB PO ONE (08:00)
[2020-08-10] MEDS: FOLIC ACID 1 MG TABLET PO SCH (08:27)
[2020-08-10] MEDS: THIAMINE HCL 100 MG TABLET PO SCH (08:27)
[2020-08-10] MEDS: FLUOXETINE 20 MG CAP PO SCH (08:28)
[2020-08-10] MEDS: RISPERIDONE 1 MG TABLET PO SCH (08:28)
[2020-08-10] MEDS: levETIRAcetam 500 MG TAB PO SCH ×2 (08:28→20:30)
[2020-08-10] MEDS: DONEPEZIL HCL 5 MG TAB PO SCH ×2 (08:28→20:30)
[2020-08-10] MEDS: ENOXAPARIN 40 MG/0.4 ML SQ SCH (08:29)
[2020-08-10] MEDS ORDERED: INFLUENZA VACCINE (for 3y+) 0.5 ML DOSE IMVAC ONE (14:00)
[2020-08-10] MEDS ORDERED: PNEUMOCOCCAL VACCINE 0.5 ML IMVAC ONE (14:00)
[2020-08-11 06:13] LABS: BUN Blood Urea Nitrogen 15 mg/dL (7-18); Bicarbonate 27 mmol/L (21-32); Glucose Level 97 mg/dL (74-106); Potassium 3.9 mmol/L (3.5-5.1); Sodium Level 139 mmol/L (136-145)
[2020-08-11] MEDS: FOLIC ACID 1 MG TABLET PO SCH (08:45)
[2020-08-11] MEDS: ENOXAPARIN 40 MG/0.4 ML SQ SCH (08:45)
[2020-08-11] MEDS: levETIRAcetam 500 MG TAB PO SCH ×2 (08:45→21:09)
[2020-08-11] MEDS: DONEPEZIL HCL 5 MG TAB PO SCH ×2 (08:45→21:09)
[2020-08-11] MEDS: FLUOXETINE 20 MG CAP PO SCH (08:46)
[2020-08-11] MEDS: THIAMINE HCL 100 MG TABLET PO SCH (08:46)
[2020-08-11] MEDS: RISPERIDONE 1 MG TABLET PO SCH (08:46)
[2020-08-11] MEDS ORDERED: POTASSIUM CL SA 10 MEQ TAB PO ONE (09:00)
[2020-08-11] MEDS ORDERED: MORPHINE 2 MG/ML SYR IV PRN (16:56)
--- NOTE | 2020-08-11 22:58 | CON ---
Reason For Consultation: Consultation called because of weakness and falls. History Of Present Illness: Mr. Almonte is a 69-year-old right-handed patient whom I see in in for localization-related complex partial seizures, stroke, and rdoj-zh-[id number] dementia. The jayce aguilar was admitted to [facility] on 08/07/2020 with as indicated weakness and falls. His c ognitive functioning was reportedly declining, which is long-standing thing and he did not have any n ew focal deficits either in the face, arm, or leg. His head CT scan showed no acute ischemic or hemo rrhagic change, just expected atrophy than diffusely expressed. He did have an area of encephalomala pamella measuring 7.1 x 4.1 cm with moderate mass effect in the left temporal lobe, also left frontal lob e schizencephaly defect was present and the area in the left frontal lobe was identified as a poor en cephalic cyst. The chest CT scan did not show any significant abnormalities. His complete blood cou nt with differential showed a slightly elevated white blood cell count of 12.3, that was 2 days ago a nd yesterday 10.5, hemoglobin and hematocrit essentially unremarkable. Coagulation panel shows an IN R of 1.23. Most recent electrolyte panel was normal and liver function studies also normal. Urinaly sis did show 1+ ketones, 3+ blood, 2+ protein. Since hospitalization, Mr. Almonte has been at his baseline level of functioning and at the time of my e valuation, he was sitting in bed. He did recognize me as I walked into the room. He did have right more than left-sided weakness and atrophy of the right more than left lower extremity, which is all c hronic, nothing new identified. Past Medical History: As indicated with history of polio. He has surgery with encephalomalacia as i ndicated. He also has appendectomy and localization-related complex partial seizures with moderate d ementia. Family History: Positive for cancer and hypertension in father. Social History: No alcohol, tobacco, or IV drug use. Allergies: NO KNOWN DRUG ALLERGIES. Medications: At home, fluoxetine 20 mg daily, Keppra 500 mg at bedtime, Namzaric 20-10 daily, risper idone 4 mg at bedtime, and nystatin cream topical twice daily. Review of Systems: As indicated. Other than indicated, he had no recent fevers, chills, nausea, vomiting, myalgias, art hralgias, headache, weight change, rash, or psychiatric issues. Physical Examination: Vital Signs: Blood pressure 103/56, pulse 60, respiratory rate 18, temperature 97.5, oxygen saturati on 95%. He is 164 pounds, 5 feet 7 inches. General: Mr. Almonte is sitting on the side of his bed. Head is bent forward. Neurologic: He does have facial asymmetry, noted more decreased movement in the right nasolabial fol d and more weakness in the right upper and lower compared to the left upper and lower extremity. Dec reased sensation to touch in the right and left upper and lower extremity. Does have increased tone in the right upper and lower extremity compared to the left side with increased reflexes in the right upper and lower extremity compared to the left side. He does require moderate assistance to stand a nd to ambulate. Assessment: Mr. Almonte is a 69-year-old patient with multiple chronic areas of ischemic events in the brain with chronic static encephalopathy and advancing cognitive dysfunction. He has no clear eviden ce of systemic infection and has hypotension and again localization-related complex partial seizures. Plan: 1.Continue with aggressive management of fluid levels and this patient needs to be hydrated with IV fluids. Continue Aricept and donepezil as Namzaric is not on formulary in the hospital. 2.Keppra 500 mg twice daily. 3.DVT prophylaxis with Lovenox 40 mg subcutaneously daily. 4.Thiamine 100 mg daily. 5.The patient may be discharged home and follow up in Dr. oMntgomery's clinic in 1 month. RENETTA/GUALBERTO Voice ID: [id number] Report ID: [id number]
[2020-08-12 05:43] LABS: BUN Blood Urea Nitrogen 14 mg/dL (7-18); Bicarbonate 28 mmol/L (21-32); Glucose Level 92 mg/dL (74-106); Potassium 4.1 mmol/L (3.5-5.1); Sodium Level 136 mmol/L (136-145)
[2020-08-12] MEDS: ENOXAPARIN 40 MG/0.4 ML SQ SCH (09:55)
[2020-08-12] MEDS: DONEPEZIL HCL 5 MG TAB PO SCH ×2 (09:55→20:49)
[2020-08-12] MEDS: RISPERIDONE 1 MG TABLET PO SCH (09:55)
[2020-08-12] MEDS: FLUOXETINE 20 MG CAP PO SCH (09:55)
[2020-08-12] MEDS: THIAMINE HCL 100 MG TABLET PO SCH (09:55)
[2020-08-12] MEDS: FOLIC ACID 1 MG TABLET PO SCH (09:56)
[2020-08-12] MEDS: levETIRAcetam 500 MG TAB PO SCH ×2 (09:56→20:49)
[2020-08-13] MEDS: ENOXAPARIN 40 MG/0.4 ML SQ SCH (08:31)
[2020-08-13] MEDS: levETIRAcetam 500 MG TAB PO SCH ×2 (08:31→19:51)
[2020-08-13] MEDS: THIAMINE HCL 100 MG TABLET PO SCH (08:31)
[2020-08-13] MEDS: FOLIC ACID 1 MG TABLET PO SCH (08:31)
[2020-08-13] MEDS: FLUOXETINE 20 MG CAP PO SCH (08:31)
[2020-08-13] MEDS: RISPERIDONE 1 MG TABLET PO SCH (08:31)
[2020-08-13] MEDS: DONEPEZIL HCL 5 MG TAB PO SCH ×2 (08:31→19:51)
[2020-08-14 03:34] VITALS: O2SAT 96
[2020-08-14] MEDS: THIAMINE HCL 100 MG TABLET PO SCH (08:52)
[2020-08-14] MEDS: levETIRAcetam 500 MG TAB PO SCH ×2 (08:52→20:01)
[2020-08-14] MEDS: RISPERIDONE 1 MG TABLET PO SCH (08:53)
[2020-08-14] MEDS: ENOXAPARIN 40 MG/0.4 ML SQ SCH (08:53)
[2020-08-14] MEDS: FOLIC ACID 1 MG TABLET PO SCH (08:53)
[2020-08-14] MEDS: FLUOXETINE 20 MG CAP PO SCH (08:53)
[2020-08-14] MEDS: DONEPEZIL HCL 5 MG TAB PO SCH ×2 (08:53→20:01)
--- NOTE | 2020-08-14 09:31 | P.PN ---
Subjective Date of Service: 08/11/20 No new changes. Patient with no complaints. He is getting up with physical therapy. He walks about 20 feet. He is moderate assist. Review of Systems 10-point ROS is otherwise unremarkable Physical Examination - Vital Signs Temperature: 97.1 F Blood Pressure: 115/57 Pulse: 67 Respirations: 20 Pulse Ox (%): 95 - Physical Exam General: Alert, In no apparent distress, Oriented x3 Respiratory: Clear to auscultation bilaterally, Normal air movement Cardiovascular: Regular rate/rhythm, Normal S1 S2, No murmurs Gastrointestinal: Normal bowel sounds, Soft and benign, Non-distended, No tenderness Musculoskeletal: No tenderness Integumentary: No rashes Neurological: Sensation intact, Cranial nerves 3-12 intact, Abnormal speech, Abnormal strength Lymphatics: No axilla or inguinal lymphadenopathy - Studies Medications List Reviewed: Yes Assessment & Plan - Problems (Diagnosis) (1) Post-polio syndrome Current Visit: Yes Status: Acute (2) Generalized weakness Current Visit: Yes Status: Acute (3) Mental disability Current Visit: Yes Status: Acute (4) Chest pain Onset Date: 06/28/17 Current Visit: No Status: Acute Qualifiers: Chest pain type: precordial pain Qualified Code(s): R07.2 - Precordial pain (5) Chronic mental illness Onset Date: 06/28/17 Current Visit: No Status: Chronic (6) Seizures Onset Date: 06/23/16 Current Visit: No Status: Chronic - Plan Plan: 1. Patient continues to do well with no new complaints. Working with physical therapy. Having some pain on his right side better overall clinically looks to be doing fairly well. He is not safe for discharge and needs to be with 24/7 supervision. He does not have this at home. He has been falling persistently. Continue with current plan of care. Discharge Plan: Home Plan to discharge in: 24 Hours - Advance Directives Does patient have a Living Will: No Does patient have a Durable POA for Healthcare: No - Code Status/Comfort Care Code Status Assessed: Yes Code Status: Full Code Critical Care: No Time Spent Managing PTS Care (In Minutes): 45
--- NOTE | 2020-08-14 09:34 | P.PN ---
Subjective Date of Service: 08/12/20 Patient doing well with no new complaints. Feeding with assistance. He ambulates with physical therapy about 20-40 feet. He does the moderate assistance along with an support. He is at a high risk of falling. He needs to have 24/7 supervision. He does not have this at home and is not a safe discharge to go home by himself for any period of time Review of Systems 10-point ROS is otherwise unremarkable Physical Examination - Vital Signs Temperature: 97.1 F Blood Pressure: 115/57 Pulse: 67 Respirations: 20 Pulse Ox (%): 95 - Physical Exam General: Alert, In no apparent distress, Cooperative Respiratory: Clear to auscultation bilaterally, Normal air movement Cardiovascular: Regular rate/rhythm, Normal S1 S2 Neurological: Abnormal gait, Abnormal strength - Studies Medications List Reviewed: Yes Assessment & Plan - Problems (Diagnosis) (1) Post-polio syndrome Current Visit: Yes Status: Acute (2) Generalized weakness Current Visit: Yes Status: Acute (3) Mental disability Current Visit: Yes Status: Acute (4) Chest pain Onset Date: 06/28/17 Current Visit: No Status: Acute Qualifiers: Chest pain type: precordial pain Qualified Code(s): R07.2 - Precordial pain (5) Chronic mental illness Onset Date: 06/28/17 Current Visit: No Status: Chronic (6) Seizures Onset Date: 06/23/16 Current Visit: No Status: Chronic (7) Subcapital fracture of femur Current Visit: Yes Status: Acute - Plan Plan: 1. No new changes at this time. Continue with plan of care as mentioned above. Awaiting placement. Patient still is requiring moderate assistance. He is working with physical therapy and once they get him out of bed. He is able to start ambulating with minimal assistance. Overall his medical condition is stable. He is not safe for discharge and needs to be with 24/7 supervision. He does not have this at home. He has been falling persistently. Continue with current plan of care. Discharge Plan: Home Plan to discharge in: Greater than 2 days - Advance Directives Does patient have a Living Will: No Does patient have a Durable POA for Healthcare: No - Code Status/Comfort Care Code Status: Full Code Critical Care: No Time Spent Managing PTS Care (In Minutes): 35
--- NOTE | 2020-08-14 09:37 | P.PN ---
Subjective Date of Service: 08/13/20 Patient with no new complaints. He is doing well with physical therapy and walking up to 40 feet; however, he is having difficulty on getting from that in in into a sitting position. He needs moderate assistance to do this. He is not safe to go home as he is of high fall risk. Review of Systems 10-point ROS is otherwise unremarkable Physical Examination - Vital Signs Temperature: 97.1 F Blood Pressure: 115/57 Pulse: 67 Respirations: 20 Pulse Ox (%): 95 - Physical Exam General: Alert, In no apparent distress, Oriented x3 Respiratory: Clear to auscultation bilaterally, Normal air movement Cardiovascular: Regular rate/rhythm, Normal S1 S2 Gastrointestinal: Normal bowel sounds, Soft and benign, Non-distended, No tenderness Musculoskeletal: No tenderness Neurological: Abnormal strength, Abnormal tone - Studies Medications List Reviewed: Yes Assessment & Plan - Problems (Diagnosis) (1) Post-polio syndrome Current Visit: Yes Status: Acute (2) Generalized weakness Current Visit: Yes Status: Acute (3) Mental disability Current Visit: Yes Status: Acute (4) Chest pain Onset Date: 06/28/17 Current Visit: No Status: Acute Qualifiers: Chest pain type: precordial pain Qualified Code(s): R07.2 - Precordial pain (5) Chronic mental illness Onset Date: 06/28/17 Current Visit: No Status: Chronic (6) Seizures Onset Date: 06/23/16 Current Visit: No Status: Chronic (7) Subcapital fracture of femur Current Visit: Yes Status: Acute - Plan Plan: Continue with plan of care as mentioned below. Spoke with insurance review and at this time they do not think that patient is a candidate for fpc. They believe he needs to go to an assisted living or long-term care. I spoke to them regarding patient needed moderate assistance to get from bed to a sitting position. Dual reviewed today's physical therapy notes and make a decision. Patient still is requiring moderate assistance. Overall his medical condition remains stable. He is not safe for discharge and needs to be with 24/7 supervision. He does not have this at home. He has been falling persistently. Continue with current plan of care. Discharge Plan: Skilled Nursing Plan to discharge in: Greater than 2 days - Advance Directives Does patient have a Living Will: No Does patient have a Durable POA for Healthcare: No - Code Status/Comfort Care Code Status: Full Code Critical Care: No Time Spent Managing PTS Care (In Minutes): 35
--- NOTE | 2020-08-14 09:38 | P.PN ---
Subjective Date of Service: 08/14/20 Patient with no new complaints. Clinically doing well Review of Systems 10-point ROS is otherwise unremarkable Physical Examination - Vital Signs Temperature: 97.1 F Blood Pressure: 115/57 Pulse: 67 Respirations: 20 Pulse Ox (%): 95 - Physical Exam General: Alert, In no apparent distress, Oriented x2 Respiratory: Clear to auscultation bilaterally, Normal air movement Cardiovascular: Regular rate/rhythm, Normal S1 S2, No murmurs Gastrointestinal: Normal bowel sounds, Soft and benign, Non-distended, No tenderness Musculoskeletal: No clubbing, No swelling, No tenderness Neurological: Normal strength at 5/5 x4 extr, Sensation intact, Cranial nerves 3-12 intact, Normal reflexes 2+, Normal affect - Studies Medications List Reviewed: Yes Assessment & Plan - Problems (Diagnosis) (1) Post-polio syndrome Status: Acute (2) Generalized weakness Status: Acute (3) Mental disability Status: Acute (4) Chest pain Onset Date: 06/28/17 Status: Acute Qualifiers: Chest pain type: precordial pain Qualified Code(s): R07.2 - Precordial pain (5) Chronic mental illness Onset Date: 06/28/17 Status: Chronic (6) Seizures Onset Date: 06/23/16 Status: Chronic (7) Subcapital fracture of femur Status: Acute - Plan Plan: Continue with medical management until patient is accepted to nursing facility. Anticipate transfer over the next 24-48 hours. - Advance Directives Does patient have a Living Will: No Does patient have a Durable POA for Healthcare: No - Code Status/Comfort Care Code Status: Full Code
[2020-08-15] MEDS: ENOXAPARIN 40 MG/0.4 ML SQ SCH (09:19)
[2020-08-15] MEDS: THIAMINE HCL 100 MG TABLET PO SCH (09:20)
[2020-08-15] MEDS: FOLIC ACID 1 MG TABLET PO SCH (09:20)
[2020-08-15] MEDS: DONEPEZIL HCL 5 MG TAB PO SCH (09:20)
[2020-08-15] MEDS: levETIRAcetam 500 MG TAB PO SCH (09:20)
[2020-08-15] MEDS: FLUOXETINE 20 MG CAP PO SCH (09:20)
[2020-08-15] MEDS: RISPERIDONE 1 MG TABLET PO SCH (09:20)
--- NOTE | 2020-08-15 15:00 | P.PN ---
Subjective Date of Service: 08/15/20 Patient clinically doing okay. No new complaints except for a sore throat. Otherwise, denies any fevers. He is going to the bathroom with assistance. Anticipate transfer to [place] over the next 24-48 hr. Review of Systems 10-point ROS is otherwise unremarkable Physical Examination - Vital Signs Temperature: 96.9 F Blood Pressure: 102/56 Pulse: 64 Respirations: 16 Pulse Ox (%): 95 - Physical Exam General: Alert, In no apparent distress, Oriented x3 Respiratory: Clear to auscultation bilaterally, Normal air movement Cardiovascular: Regular rate/rhythm, Normal S1 S2 Gastrointestinal: Normal bowel sounds, Soft and benign, Non-distended, No tenderness Musculoskeletal: No tenderness Integumentary: No rashes Neurological: Normal speech, Normal tone, Normal affect Lymphatics: No axilla or inguinal lymphadenopathy - Studies Medications List Reviewed: Yes Assessment & Plan - Problems (Diagnosis) (1) Post-polio syndrome Current Visit: Yes Status: Acute (2) Generalized weakness Current Visit: Yes Status: Acute (3) Mental disability Current Visit: Yes Status: Acute (4) Chest pain Onset Date: 06/28/17 Current Visit: No Status: Acute Qualifiers: Chest pain type: precordial pain Qualified Code(s): R07.2 - Precordial pain (5) Chronic mental illness Onset Date: 06/28/17 Current Visit: No Status: Chronic (6) Seizures Onset Date: 06/23/16 Current Visit: No Status: Chronic (7) Subcapital fracture of femur Current Visit: Yes Status: Acute - Plan Plan: 1. Continue with physical therapy 2. May give him anti-inflammatory for a sore throat 3. Diet as tolerated 4. Awaiting transfer to [facility] as patient is not safe for discharge to home as he would be by himself and is unable to care for himself. He is mentally challenged to make appropriate decisions for himself and he would require 24/7 care which she is not able to get through family. Discharge Plan: Home Plan to discharge in: Greater than 2 days - Advance Directives Does patient have a Living Will: No Does patient have a Durable POA for Healthcare: No - Code Status/Comfort Care Code Status: Full Code Critical Care: No Time Spent Managing PTS Care (In Minutes): 35
--- NOTE | 2020-08-15 16:36 | P.DS ---
Discharge Date: 08/15/20 Primary Care Provider: Unknown Disposition: TRANSFER TO SNF - REHAB Discharge Condition: GOOD Reason for Admission: Weakness, Falls Consultations: Neurology consultation - Problems (1) Post-polio syndrome Status: Acute (2) Generalized weakness Status: Acute (3) Mental disability Status: Acute (4) Chest pain Onset Date: 06/28/17 Status: Acute Qualifiers: Chest pain type: precordial pain Qualified Code(s): R07.2 - Precordial pain (5) Chronic mental illness Onset Date: 06/28/17 Status: Chronic (6) Seizures Onset Date: 06/23/16 Status: Chronic (7) Subcapital fracture of femur Status: Acute Brief History of Present Illness: Patient is a 69-year-old gentleman with a history of polio and decrease mental capacity Who was brought in to the family because they were unable to care for him any longer. Patient was brought into the emergency room and admitted because he was not safe to go back home. We admitted the patient to observation. Hospital Course: Patient did well during hospitalization. It did take quite awhile to get a facility to accept him. He was excepted at [facility] where he will be transferred for continued care. Vital Signs/Physical Exam: Temp Pulse Resp BP Pulse Ox 97.5 F 87 17 133/63 98 08/15/20 16:00 08/15/20 16:00 08/15/20 16:00 08/15/20 16:00 08/15/20 16:00 General: Alert, In no apparent distress, Demented Laboratory Data at Discharge: WBC 10.5 K/uL (4.3-10.9) D 08/08/20 05:53 Hgb 11.5 g/dL (13.6-17.9) L 08/08/20 05:53 Hct 33.5 % (39.6-49.0) L 08/08/20 05:53 Plt Count 217 K/uL (152-406) 08/08/20 05:53 PT 14.4 SECONDS (9.5-12.5) H 08/07/20 12:05 INR 1.23 08/07/20 12:05 Sodium 136 mmol/L (136-145) 08/12/20 05:18 Potassium 4.1 mmol/L (3.5-5.1) 08/12/20 05:18 BUN 14 mg/dL (7-18) 08/12/20 05:18 Creatinine 0.69 mg/dL (0.55-1.3) 08/12/20 05:18 Glucose 92 mg/dL (74-106) 08/12/20 05:18 Magnesium 2.7 mg/dL (1.8-2.4) H 08/07/20 12:05 Total Bilirubin 0.4 mg/dL (0.2-1.0) 08/07/20 12:05 AST 20 U/L (15-37) 08/07/20 12:05 ALT 23 U/L (12-78) 08/07/20 12:05 Alkaline Phosphatase 77 U/L (45-117) 08/07/20 12:05 Home Medications: Donepezil [Aricept*] 10 mg PO BID 08/08/20 Fluoxetine HCl 20 mg PO DAILY 08/08/20 Levetiracetam [Keppra] 500 mg PO BID 08/08/20 Risperidone 4 mg PO DAILY 08/08/20 Thiamine HCl [Vitamin B-1*] 100 mg PO DAILY #30 tablet 08/15/20 New Medications: Thiamine HCl [Vitamin B-1*] 100 mg PO DAILY #30 tablet Patient Discharge Instructions: OK TO TRANSFER TO [facility]. FOLLOW-UP WITH PCP IN 1-2 DAYS. RETURN TO THE ER IF SYMPTOMS WORSENS Diet: Regular Activity: Ad clive Followup: RADHA GARCIA [Primary Care Provider] - Time spent managing pt's care (in minutes): 35
[2020-08-19 04:58] VITALS: BP 115/57; TEMP 97.1
== END 2020-08-15 17:55 ==
LOC: ER 11:17 → ERHOLD 18:41 → 2ND 21:19
PROVIDERS: ADMIT Family Medicine; ATTEND Hospitalist
DX: R53.1 Weakness (principal); R07.2 Precordial pain; G14 Postpolio syndrome; F03.90 Unspecified dementia, unspecified severity, without behavioral disturbance, psychotic disturbance, mood disturbance, and anxiety; G40.209 Localization-related (focal) (partial) symptomatic epilepsy and epileptic syndromes with complex partial seizures, not intractable, without status epilepticus; Z20.828 Contact with and (suspected) exposure to other viral communicable diseases; N17.9 Acute kidney failure, unspecified; E86.0 Dehydration; S72.011A Unspecified intracapsular fracture of right femur, initial encounter for closed fracture; W19.XXXA Unspecified fall, initial encounter; M25.521 Pain in right elbow; M25.522 Pain in left elbow; F41.8 Other specified anxiety disorders
CPT/HCPCS: 36415; 51702; 70450; 71045; 71250; 72125; 80048; 80076; 81003; 83735; 83880; 84484; 85025; 85610; 87070; 87205; 93005; 97110; 97112; 97116; 97161; 97530; 99285; G0378; J1650; J2270; J7030; U0002

== ENCOUNTER 2020-11-05 18:52 | Emergency (ER) | payer OTHER ==
[2020-11-05 20:03] LABS: Basophils % 0.3 % (0-1.3); Hematocrit 37.5 % (39.6-49.0); Lymphocytes % 9.5 % (15.3-44.8); MPV 7.6 fL (7.6-11.3); RBC Red Blood Cell Count 4.01 M/uL (4.33-5.43)
[2020-11-05] MEDS ORDERED: LEVETIRACETAM 500 MG/5 ML VIAL IV ONE (20:09)
[2020-11-05] MEDS ORDERED: NA CHLORIDE 0.9% 1,000 ML ONE ×2 (20:09→20:10)
[2020-11-05] MEDS ORDERED: NA CHLORIDE 0.9% 100 ML ONE (20:10)
[2020-11-05 20:22] LABS: ALT/SGPT 11 U/L (12-78); AST/SGOT 5 U/L (15-37); Albumin 3.5 g/dL (3.4-5.0); Alkaline Phosphatase 119 U/L (45-117); BUN Blood Urea Nitrogen 14 mg/dL (7-18); Bicarbonate 28 mmol/L (21-32); Bilirubin Total 0.2 mg/dL (0.2-1.0); Glucose Level 96 mg/dL (74-106); Magnesium 2.4 mg/dL (1.8-2.4); Potassium 3.9 mmol/L (3.5-5.1); Sodium Level 138 mmol/L (136-145); Troponin (Emerg Dept Use Only) < 0.02 ng/mL (0.0-0.045)
--- NOTE | 2020-11-05 20:38 | RAD REPORT ---
EXAM DESCRIPTION: [facility] Single View11/05/2020 8:29 pm CLINICAL HISTORY: Congestion COMPARISON: 2019 FINDINGS: The lungs appear clear of acute infiltrate. The heart is normal size. AIX SYSTEM ADMINISTRATOR shunts course th e chest IMPRESSION: No acute abnormalities displayed
--- NOTE | 2020-11-05 20:49 | RAD REPORT ---
EXAM DESCRIPTION: CT - Head C Spine Mpr Wo Con - 11/05/2020 8:30 pm CLINICAL HISTORY: Seizure. Head and neck injury status post fall. Head and neck pain COMPARISON: [address] TECHNIQUE: Computed axial tomography of the head and cervical spine was obtained. Sagittal and coronal reconstruction was performed. All CT scans are performed using dose optimization technique as appropriate and may include automated exposure control or mA/KV adjustment according to patient size. FINDINGS: Ventriculostomy tubes are unchanged in position. 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 Small area of right frontal lobe gliosis unchanged An intracranial bleed is not seen.Fluid within the visualized sinuses and mastoids is not seen A cervical fracture is not visualized. No dislocation is noted. Congenital nonunion posterior arch C1 IMPRESSION: No acute intracranial abnormality is seen. A cervical fracture is not visualized.
--- NOTE | 2020-11-05 21:12 | EDPHYS ---
Physician Documentation [facility] Name: Tonio Almonte Age: 70 yrs Sex: Male : 1950 Arrival Date: 11/05/2020 Time: 19:01 Bed 4 Private MD: John Cuellar ED Physician Nick Lopez HPI: 11/05 20:14 This 70 yrs old Male presents to ER via EMS with complaints of seizure . ma2 20:14 The patient presents after having a single isolated seizure. Seizure onset: today. ma2 Context: similar to prior . Seizure Hx: Usual frequency:. The patient has experienced similar episodes in the past, and the symptoms today are exactly the same. Historical: - Allergies: 19:10 No Known Allergies; jd3 - Home Meds: 19:10 donepezil 10 mg Oral tab 1 tab twice a day [Active]; fluoxetine 20 mg Oral cap 1 cap jd3 once daily [Active]; levetiracetam 500 mg Oral tab 1 tab twice a day [Active]; Risperdal 4 mg Oral tab 1 tab once daily [Active]; - PMHx: 19:10 CVA; chronic mental illness; Dementia; epilepsy; jd3 - Immunization history:: Adult Immunizations up to date. - Social history:: Smoking status: Patient denies any tobacco usage or history of. - Family history:: not pertinent. ROS: 20:14 Constitutional: Negative for fever, chills, and weight loss. ma2 20:14 All other systems are negative. Exam: 20:14 Constitutional: This is a well developed, well nourished patient who is awake, alert, ma2 and in no acute distress. Head/Face: Normocephalic, atraumatic. Eyes: Pupils equal round and reactive to light, extra-ocular motions intact. Lids and lashes normal. Conjunctiva and sclera are non-icteric and not injected. Cornea within normal limits. Periorbital areas with no swelling, redness, or edema. ENT: Nares patent. No nasal discharge, no septal abnormalities noted. Tympanic membranes are normal and external auditory canals are clear. Oropharynx with no redness, swelling, or masses, exudates, or evidence of obstruction, uvula midline. Mucous membranes moist. Neck: Trachea midline, no thyromegaly or masses palpated, and no cervical lymphadenopathy. Supple, full range of motion without nuchal rigidity, or vertebral point tenderness. No Meningismus. Chest/axilla: Normal chest wall appearance and motion. Nontender with no deformity. No lesions are appreciated. Cardiovascular: Regular rate and rhythm with a normal S1 and S2. No gallops, murmurs, or rubs. Normal PMI, no JVD. No pulse deficits. Respiratory: Lungs have equal breath sounds bilaterally, clear to auscultation and percussion. No rales, rhonchi or wheezes noted. No increased work of breathing, no retractions or nasal flaring. Abdomen/GI: Soft, non-tender, with normal bowel sounds. No distension or tympany. No guarding or rebound. No evidence of tenderness throughout. MS/ Extremity: Pulses equal, no cyanosis. Neurovascular intact. Full, normal range of motion. Neuro: Awake and alert, GCS 15, oriented to person, place, time, and situation. Cranial nerves II-XII grossly intact. Motor strength 5/5 in all extremities. Sensory grossly intact. Cerebellar exam normal. Normal gait. Vital Signs: 19:10 BP 120 / 66; Pulse 98; Resp 17 S; Temp 98.0(TE); Pulse Ox 97% on R/A; Weight 76.2 kg jd3 (R); Height 5 ft. 6 in. (167.64 cm) (R); Pain 10; 21:00 BP 122 / 68; Pulse 80; Resp 18; Pulse Ox 98% on R/A; ea 23:15 BP 125 / 87; Pulse 72; Resp 18; Temp 98; Pulse Ox 99% ; ea 11/06 00:06 BP 118 / 70; Pulse 66; Resp 18; Pulse Ox 99% ; ea 11/05 19:10 Body Mass Index 27.12 (76.20 kg, 167.64 cm) jd3 MDM: 11/05 20:14 Differential diagnosis: drug overdose, cardiac arrhythmia, seizure. ma2 21:10 Data reviewed: vital signs, nurses notes. Counseling: I had a detailed discussion with klaus the patient and/or guardian regarding: the historical points, exam findings, and any diagnostic results supporting the discharge/admit diagnosis, the presence of at least one elevated blood pressure reading (>120/80) during this emergency department visit, the need for outpatient follow up. Response to treatment: the patient's symptoms have markedly improved after treatment. 21:11 Patient medically screened. [facility] 11/05 19:43 Order name: CBC with Diff; Complete Time: 21:10 [facility] 11/05 19:43 Order name: CMP; Complete Time: 21: [facility] 11/05 19:43 Order name: Troponin (emerg Dept Use Only); Complete Time: 21: [facility] 11/05 19:43 Order name: Magnesium; Complete Time: 21: mo11/05 19:43 Order name: EKG - Nurse/Tech; Complete Time: 21:06 [facility] 11/05 19:43 Order name: Chest Single View XRAY; Complete Time: 21: [facility] 11/05 19:55 Order name: Head C Spine Mpr Wo Con; Complete Time: 21: EDMS Administered Medications: 20:04 Drug: Keppra 1000 mg Route: IV; Rate: calculated rate; Site: left forearm; ea 21:00 Follow up: Response: No adverse reaction; IV Status: Completed infusion ea 22:00 Follow up: Response: No adverse reaction; IV Status: Completed infusion; IV Intake: ea 1000ml 20:05 Drug: NS 0.9% 1000 ml Route: IV; Rate: 1 bolus; Site: left forearm; ea Disposition: 11/05/20 21:11 Discharged to Home. Impression: Epilepsy and recurrent seizures. - Condition is Stable. - Discharge Instructions: Seizure, Adult. - Prescriptions for Keppra 500 mg Oral Tablet - take 1 tablet by ORAL route every 12 hours; 20 tablet. - Medication Reconciliation Form, Thank You Letter, Antibiotic Education, Prescription Opioid Use form. - Follow up: Private Physician; When: Tomorrow; Reason: Continuance of care. Signatures: Dispatcher [employer] EDGena Leavitt RN RN ea Davies, Jonathon, RN RN jd3 Alzahri, Mohammad, MD MD ma2 Corrections: (The following items were deleted from the chart) 19:55 19:46 Head Brain Wo Cont+CT.RAD.BRZ ordered. EDMS EDMS 19:56 19:45 C Spine Wo Con+CT.RAD.BRZ ordered. EDMS EDMS 11/06 00:07 11/05 21:11 11/05/2020 21:11 Discharged to Home. Impression: Epilepsy and recurrent ea seizures. Condition is Stable. Prescriptions for Keppra 500 mg Oral Tablet - take 1 tablet by ORAL route every 12 hours; 20 tablet. and Forms are Medication Reconciliation Form, Thank You Letter, Antibiotic Education, Prescription Opioid Use. Follow up: Private Physician; When: Tomorrow; Reason: Continuance of care. ma2
--- NOTE | 2020-11-05 21:12 | ER ---
Nurse's Notes [facility] Name: Tonio Almonte Age: 70 yrs Sex: Male : 1950 Arrival Date: 11/05/2020 Time: 19:01 Bed 4 Private MD: John Cuellar Diagnosis: Epilepsy and recurrent seizures Presentation: 11/05 19:02 Chief complaint: EMS states: " the pt had a seizure. he has a history of epilepsy and jd3 they did not initially call for that, but during his seizure he fell and hit his head.". Coronavirus screen: At this time, the client does not indicate any symptoms associated with coronavirus-19. Ebola Screen: Patient negative for fever greater than or equal to 101.5 degrees Fahrenheit, and additional compatible Ebola Virus Disease symptoms. Initial Sepsis Screen: Does the patient meet any 2 criteria? No. Patient's initial sepsis screen is negative. Does the patient have a suspected source of infection? No. Patient's initial sepsis screen is negative. Risk Assessment: Do you want to hurt yourself or someone else? Patient reports no desire to harm self or others. Onset of symptoms was November 05, 2020. 19:02 Method Of Arrival: EMS: [facility] jd3 19:02 Acuity: OPAL 2 jd3 Historical: - Allergies: 19:10 No Known Allergies; jd3 - Home Meds: 19:10 donepezil 10 mg Oral tab 1 tab twice a day [Active]; fluoxetine 20 mg Oral cap 1 cap jd3 once daily [Active]; levetiracetam 500 mg Oral tab 1 tab twice a day [Active]; Risperdal 4 mg Oral tab 1 tab once daily [Active]; - PMHx: 19:10 CVA; chronic mental illness; Dementia; epilepsy; jd3 - Immunization history:: Adult Immunizations up to date. - Social history:: Smoking status: Patient denies any tobacco usage or history of. - Family history:: not pertinent. Screenin:41 Abuse screen: Denies threats or abuse. Nutritional screening: No deficits noted. ea Tuberculosis screening: No symptoms or risk factors identified. Fall Risk None identified. Mental Status- Overestimates/Forgets Limitations (15 pts.). Assessment: 19:00 General: Appears in no apparent distress. Behavior is calm, cooperative, appropriate ea for age. Pain: Denies pain. Neuro: Level of Consciousness is awake. Cardiovascular: Patient's skin is warm and dry. Respiratory: Airway is patent Respiratory effort is even, unlabored, Respiratory pattern is regular, symmetrical. Derm: Skin is pink, warm \\T\\ dry. 20:30 Reassessment: Patient and/or family updated on plan of care and expected duration. Pain ea level reassessed. Pt resting with eyes closed, respirations even and unlabored, chest expansions even and symmetrical. 21:30 Reassessment: Patient and/or family updated on plan of care and expected duration. Pain ea level reassessed. Pt resting with eyes closed, respirations even and unlabored, chest expansions even and symmetrical. 22:23 Reassessment: Patient and/or family updated on plan of care and expected duration. Pain ea level reassessed. Called report to [facility], receiving nurse reported he was unable take pt back, stated "I need to talk to my insurance office supervisor for clearance before taking Mr. Almonte back". 22:31 Reassessment: Patient and/or family updated on plan of care and expected duration. Pain ea level reassessed. 22:45 Reassessment: Spoke with Avani HAWK at [facility] reported ambulance ETA was two hours.ea 23:39 Reassessment: Patient and/or family updated on plan of care and expected duration. Pain ea level reassessed. Patient is alert, oriented x 3, equal unlabored respirations, skin warm/dry/pink. Pt resting with eyes closed respirations even and unlabored, chest expansions even and symmetrical. Awaiting on transportation. 11/06 00:04 Reassessment: Patient and/or family updated on plan of care and expected duration. Pain ea level reassessed. Patient is alert, oriented x 3, equal unlabored respirations, skin warm/dry/pink. [facility] ambulance at facility for transfer, report given to EMS, pt left ED via stretcher, tolerating well. Vital Signs: 11/05 19:10 BP 120 / 66; Pulse 98; Resp 17 S; Temp 98.0(TE); Pulse Ox 97% on R/A; Weight 76.2 kg jd3 (R); Height 5 ft. 6 in. (167.64 cm) (R); Pain 1010; 21:00 BP 122 / 68; Pulse 80; Resp 18; Pulse Ox 98% on R/A; ea 23:15 BP 125 / 87; Pulse 72; Resp 18; Temp 98; Pulse Ox 99% ; ea 11/06 00:06 BP 118 / 70; Pulse 66; Resp 18; Pulse Ox 99% ; ea 11/05 19:10 Body Mass Index 27.12 (76.20 kg, 167.64 cm) [facility] ED Course: 11/05 19:01 Patient arrived in ED. jd3 19:04 Nick Lopez MD is Attending Physician. ma2 19:09 Triage completed. jd3 19:11 Arm band placed on. jd3 19:41 Gena Huggins, CHRISSY is Primary Nurse. ea 19:41 Patient has correct armband on for positive identification. Bed in low position. Call ea light in reach. Side rails up X2. 19:58 Initial lab(s) drawn, by me, sent to lab. Maintain EMS IV. Dressing intact. Site clean sg \\T\\ dry. Gauge \\T\\ site: 20 G LFA. 20:29 Chest Single View XRAY In Process Unspecified. EDMS 20:30 Head C Spine Mpr Wo Con In Process Unspecified. EDMS 20:49 John Cuellar MD is Private Physician. sg 22:22 No provider procedures requiring assistance completed. ea 23:47 IV discontinued, intact, bleeding controlled, No redness/swelling at site. Pressure ea dressing applied. Administered Medications: 20:04 Drug: Keppra 1000 mg Route: IV; Rate: calculated rate; Site: left forearm; ea 21:00 Follow up: Response: No adverse reaction; IV Status: Completed infusion ea 22:00 Follow up: Response: No adverse reaction; IV Status: Completed infusion; IV Intake: ea 1000ml 20:05 Drug: NS 0.9% 1000 ml Route: IV; Rate: 1 bolus; Site: left forearm; ea Intake: 22:00 IV: 1000ml; Total: 1000ml. ea Outcome: 21:11 Discharge ordered by . ma2 11/06 00:06 Discharged to [facility]. Report called to Receiving nurse at [facility] ea Condition: stable Discharge instructions given to EMS, Instructed on discharge instructions, follow up and referral plans. medication usage, Demonstrated understanding of Prescriptions given X 1. 00:07 Patient left the ED. ea Signatures: Dispatcher [employer] EDFadi Moodyen, RN RN sg Gena Huggins RN RN Dwaine Pool RN RN jd3 Nick Lopez MD MD ma2
[2020-11-06 00:15] VITALS: TEMP 98; O2SAT 99
[2020-11-06 00:16] VITALS: BP 118/70
== END 2020-11-06 00:07 | disposition home or self-care (01) ==
LOC: ER 18:52
DX: G40.909 Epilepsy, unspecified, not intractable, without status epilepticus (principal); F03.90 Unspecified dementia, unspecified severity, without behavioral disturbance, psychotic disturbance, mood disturbance, and anxiety; I63.9 Cerebral infarction, unspecified; F99 Mental disorder, not otherwise specified
CPT/HCPCS: 96365; 93005; 85025; 36415; 83735; 84484; 80053; 70450; 72125; 71045; 99284; J1953; J7030 ×2

== ENCOUNTER 2020-12-18 10:58 | Emergency (ER) | payer OTHER ==
[2020-12-18 11:44] LABS: Absolute Lymphocytes (CBC) 0.8 K/uL (0.7-4.9); Basophils % 0.4 % (0-1.3); Hematocrit 38.4 % (39.6-49.0); Lymphocytes % 9.5 % (15.3-44.8); MPV 7.3 fL (7.6-11.3); RBC Red Blood Cell Count 4.13 M/uL (4.33-5.43)
[2020-12-18 11:48] LABS: Protime INR 1.03
[2020-12-18 11:59] LABS: ALT/SGPT 18 U/L (12-78); AST/SGOT 7 U/L (15-37); Albumin 3.2 g/dL (3.4-5.0); Alkaline Phosphatase 97 U/L (45-117); BUN Blood Urea Nitrogen 14 mg/dL (7-18); Bicarbonate 24 mmol/L (21-32); Bilirubin Direct < 0.1 mg/dL (0-0.2); Bilirubin Total 0.1 mg/dL (0.2-1.0); Glucose Level 84 mg/dL (74-106); Potassium 3.9 mmol/L (3.5-5.1); Protein, Total 6.8 g/dL (6.4-8.2); Sodium Level 135 mmol/L (136-145)
[2020-12-18 12:38] LABS: Urine Blood 2+ (NEG); Urine Glucose NEGATIVE (NEG); Urine Protein TRACE (NEG); Urine Specific Gravity 1.025 (1.005-1.030)
[2020-12-18 12:43] LABS: Barbiturates NEGATIVE (NEGATIVE); Benzodiazepines NEGATIVE (NEGATIVE); Cocaine NEGATIVE (NEGATIVE); METHAMPHETAM NEGATIVE (NEGATIVE); Methadone NEGATIVE (NEGATIVE); Opiates NEGATIVE (NEGATIVE); Phencyclidine NEGATIVE (NEGATIVE); THC Cannibis NEGATIVE (NEGATIVE)
--- NOTE | 2020-12-18 13:43 | EDPHYS ---
Physician Documentation [facility] Name: Tonoi Almonte Age: 70 yrs Sex: Male : 1950 Arrival Date: 12/18/2020 Time: 11:03 Bed 2 Private MD: ED Physician Stew Scherer HPI: 12/18 11:08 This 70 yrs old Male presents to ER via EMS with complaints of Probable kdr Seizure. 11:08 The patient presents after having a single isolated seizure, that lasted 20 minute(s), kdr after having a possible seizure episode. Character of seizure(s): Loss of consciousness: the patient experienced loss of consciousness, Motor activity: generalized, Incontinence: none, Apnea: the patient did not experience apnea, Circulation: the patient did not experience evidence of pulse disturbance. Seizure onset: just prior to arrival. Context: the seizure(s) was witnessed, by a bystander, occurred at an office, occurred while the patient was at rest, Contributing factors: unknown. Seizure Hx: Last seizure: The patient's last seizure "not sure", Seizure medications: Tegretol. Associated injury: The patient did not suffer any apparent associated injury. EMS care: none. Current symptoms: General malaise. The patient has experienced similar episodes in the past, multiple times. The patient has not recently seen a physician, last visit was in October to the ED. Historical: - Allergies: 11:13 No Known Allergies; jl7 - Home Meds: 11:13 donepezil 10 mg Oral tab 1 tab twice a day [Active]; fluoxetine 20 mg Oral cap 1 cap jl7 once daily [Active]; levetiracetam 500 mg Oral tab 1 tab twice a day [Active]; Risperdal 4 mg Oral tab 1 tab once daily [Active]; - PMHx: 11:13 epilepsy; Dementia; CVA; chronic mental illness; Encephalopathy; jl7 - Immunization history:: Adult Immunizations up to date. - Social history:: Smoking status: Patient denies any tobacco usage or history of. ROS: 11:08 Constitutional: Unable to obtain due to AMS kdr 11:08 Unable to obtain ROS due to altered mental status. Exam: 11:08 Constitutional: This is a well developed, well nourished patient who is easily aroused kdr from apparent sleep but in no acute distress. Head/Face: Normocephalic, atraumatic. Eyes: Pupils equal round and reactive to light, extra-ocular motions intact. Lids and lashes normal. Conjunctiva and sclera are non-icteric and not injected. Cornea within normal limits. Periorbital areas with no swelling, redness, or edema. Neck: Trachea midline, no thyromegaly or masses palpated, and no cervical lymphadenopathy. Supple, full range of motion without nuchal rigidity, or vertebral point tenderness. No Meningismus. Chest/axilla: Normal chest wall appearance and motion. Nontender with no deformity. No lesions are appreciated. Cardiovascular: Regular rate and rhythm with a normal S1 and S2. No gallops, murmurs, or rubs. Normal PMI, no JVD. No pulse deficits. Respiratory: Lungs have equal breath sounds bilaterally, clear to auscultation and percussion. No rales, rhonchi or wheezes noted. No increased work of breathing, no retractions or nasal flaring. Abdomen/GI: Soft, non-tender, with normal bowel sounds. No distension or tympany. No guarding or rebound. No evidence of tenderness throughout. Back: No spinal tenderness. No costovertebral tenderness. Full range of motion. Skin: Warm, dry with normal turgor. Normal color with no rashes, no lesions, and no evidence of cellulitis. MS/ Extremity: Pulses equal, no cyanosis. Neurovascular intact. Full, normal range of motion. Psych: Awake, alert, with orientation to person, place and time. Behavior, mood, and affect are within normal limits. 11:08 Neuro: Orientation: to person, Not oriented to place, time, situation, Mentation: able to follow commands, slow to respond, confused, Motor: Vital Signs: 11:03 BP 119 / 63; Pulse 88; Resp 17; Temp 98.8; Pulse Ox 100% ; Pain 0/10; jl7 12:42 BP 126 / 66; Pulse 67; Resp 15; Pulse Ox 100% ; jl7 14:23 BP 139 / 65; Pulse 75; Resp 15; Pulse Ox 100% ; jl7 Jeff Coma Score: 11:03 Eye Response: spontaneous(4). Verbal Response: oriented(5). Motor Response: obeys jl7 commands(6). Total: 15. MDM: 11:08 Data reviewed: vital signs, nurses notes, lab test result(s), radiologic studies. kdr Counseling: I had a detailed discussion with the patient and/or guardian regarding: the historical points, exam findings, and any diagnostic results supporting the discharge/admit diagnosis, lab results, radiology results. 13:42 Patient medically screened. [facility] 12/18 11:08 Order name: Tegretol Level [facility] 12/18 11:08 Order name: Acetaminophen [facility] 12/18 11:08 Order name: Basic Metabolic Panel [facility] 12/18 11:08 Order name: CBC with Diff; Complete Time: 13:40 [facility] 12/18 11:08 Order name: ETOH Level; Complete Time: 13:40 [facility] 12/18 11:08 Order name: Hepatic Function; Complete Time: 13:40 [facility] 12/18 11:08 Order name: PT-INR; Complete Time: 13:40 [facility] 12/18 11:08 Order name: Ptt, Activated; Complete Time: 13:40 [facility] 12/18 11:08 Order name: Salicylate; Complete Time: 13:40 [facility] 12/18 11:08 Order name: Urine Drug Screen; Complete Time: 13:40 [facility] 12/18 11:09 Order name: Carbamazepine (Tegretol) Level; Complete Time: 13:40 EDMS 12/18 11:09 Order name: Acetaminophen Level; Complete Time: 13:40 EDMS 12/18 11:09 Order name: Basic Metabolic Panel; Complete Time: 13:40 [facility] 12/18 12:28 Order name: Urine Dipstick--Ancillary (enter results); Complete Time: 13:40 em 12/18 11:08 Order name: EKG; Complete Time: 11:09 [facility] 12/18 11:08 Order name: EKG - Nurse/Tech; Complete Time: 11:23 [facility] 12/18 11:08 Order name: IV Saline Lock; Complete Time: 11:34 [facility] 12/18 11:08 Order name: Labs collected and sent; Complete Time: 11:34 [facility] 12/18 11:08 Order name: Urine Dipstick-Ancillary (obtain specimen); Complete Time: 12:27 kdr Administered Medications: 13:45 Drug: TEGretol (carbamazepine) 400 mg Route: PO; bp 14:11 Follow up: Response: Medication administered at discharge. bp Disposition: 12/18/20 13:42 Discharged to Home. Impression: Epilepsy and recurrent seizures. - Condition is Stable. - Discharge Instructions: Seizure, Adult, [id number]. - Prescriptions for Tegretol 200 mg Oral Tablet - take 1 tablet by ORAL route every 12 hours; 60 tablet. - Medication Reconciliation Form, Thank You Letter form. - Follow up: Private Physician; When: 2 - 3 days; Reason: If symptoms return, Further diagnostic work-up, Recheck today's complaints, Continuance of care, Re-evaluation by your physician. - Problem is an acute exacerbation. - Symptoms have improved. Signatures: Dispatcher [employer] EDWY Stew Scherer MD MD kdr Dolores Estrada RN RN jl7 Gianfranco Landeros RN RN bp Corrections: (The following items were deleted from the chart) 15:25 13:42 12/18/2020 13:42 Discharged to Home. Impression: Epilepsy and recurrent seizures. bp Condition is Stable. Forms are Medication Reconciliation Form, Thank You Letter, Antibiotic Education, Prescription Opioid Use. Follow up: Private Physician; When: 2 - 3 days; Reason: If symptoms return, Further diagnostic work-up, Recheck today's complaints, Continuance of care, Re-evaluation by your physician. Problem is an acute exacerbation. Symptoms have improved. kdr
--- NOTE | 2020-12-18 13:43 | ER ---
Nurse's Notes [facility] Name: Tonio Almonte Age: 70 yrs Sex: Male : 1950 Arrival Date: 12/18/2020 Time: 11:03 Bed 2 Private MD: Diagnosis: Epilepsy and recurrent seizures Presentation: 12/18 11:03 Chief complaint: EMS states: Toned out for intermittent seizures this morning for 20 jl7 min with only a few minutes in between. Coronavirus screen: Client denies travel out of the [place] in the last 14 days. At this time, the client does not indicate any symptoms associated with coronavirus-19. Ebola Screen: No symptoms or risks identified at this time. Initial Sepsis Screen: Does the patient meet any 2 criteria? No. Patient's initial sepsis screen is negative. Does the patient have a suspected source of infection? No. Patient's initial sepsis screen is negative. Risk Assessment: Do you want to hurt yourself or someone else? Patient reports no desire to harm self or others. Onset of symptoms is unknown. Transition of care: patient was received from another setting of care (long-term care [facility]. 11:03 Method Of Arrival: EMS: [facility] jl7 11:03 Acuity: OPAL 2 jl7 Triage Assessment: 11:03 General: Appears in no apparent distress. uncomfortable, Behavior is calm, cooperative. jl7 Pain: Denies pain. Neuro: Level of Consciousness is awake, alert, obeys commands, Oriented to person, Baseline. Cardiovascular: Patient's skin is warm and dry. Respiratory: Airway is patent Respiratory effort is even, unlabored, Respiratory pattern is regular, symmetrical. Derm: Skin is pink, warm \T\ dry. Historical: - Allergies: 11:13 No Known Allergies; jl7 - Home Meds: 11:13 donepezil 10 mg Oral tab 1 tab twice a day [Active]; fluoxetine 20 mg Oral cap 1 cap jl7 once daily [Active]; levetiracetam 500 mg Oral tab 1 tab twice a day [Active]; Risperdal 4 mg Oral tab 1 tab once daily [Active]; - PMHx: 11:13 epilepsy; Dementia; CVA; chronic mental illness; Encephalopathy; jl7 - Immunization history:: Adult Immunizations up to date. - Social history:: Smoking status: Patient denies any tobacco usage or history of. Screenin:34 Abuse screen: Denies threats or abuse. Denies injuries from another. Nutritional jl7 screening: No deficits noted. Tuberculosis screening: No symptoms or risk factors identified. Fall Risk No fall in past 12 months (0 pts). Secondary diagnosis (15 points) dementia, IV access (20 points). Ambulatory Aid- None/Bed Rest/Nurse Assist (0 pts). Gait- Weak (10 pts.). Mental Status- Overestimates/Forgets Limitations (15 pts.). Total Perry Fall Scale indicates High Risk Score (45 or more points). Fall prevention measures have been instituted. Side Rails Up X 2 Placed Close to Nursing Station Frequent Obs/Assessments Occuring As available patient and family educated on Fall Prevention Program and Strategies. Assessment: 11:03 General: See triage assessment. jl7 12:44 Reassessment: Patient appears in no apparent distress at this time. No changes from jl7 previously documented assessment. Patient and/or family updated on plan of care and expected duration. Pain level reassessed. 13:45 Reassessment: Patient appears in no apparent distress at this time. No changes from jl7 previously documented assessment. Patient and/or family updated on plan of care and expected duration. Pain level reassessed. Patient is alert, oriented x 3, equal unlabored respirations, skin warm/dry/pink. 14:23 Reassessment: Clinicals faxed to [facility], awaiting approval from [facility] to accept pt. jl7 14:48 Reassessment: Nurse Gm at [facility] reports she will setup transportation to get [facility] the pt back. She will call back with an ETA. Vital Signs: 11:03 BP 119 / 63; Pulse 88; Resp 17; Temp 98.8; Pulse Ox 100% ; Pain 0/10; jl7 12:42 BP 126 / 66; Pulse 67; Resp 15; Pulse Ox 100% ; jl7 14:23 BP 139 / 65; Pulse 75; Resp 15; Pulse Ox 100% ; jl7 Jeff Coma Score: 11:03 Eye Response: spontaneous(4). Verbal Response: oriented(5). Motor Response: obeys jl7 commands(6). Total: 15. ED Course: 11:03 Patient arrived in ED. jl7 11:03 Stew Scherer MD is Attending Physician. kdr 11:03 Arm band placed on right wrist. jl7 11:08 Triage completed. jl7 11:16 Dolores Estrada, RN is Primary Nurse. jl7 11:23 Patient has correct armband on for positive identification. Bed in low position. [facility] light in reach. Side rails up X2. Seizure precautions initiated. Warm blanket given. Pillow given. election watcher on. Pulse ox on. NIBP on. 11:24 EKG done, by ED staff, reviewed by Stew Scherer MD. Maintain EMS IV. Site clean \T\ dry. mh5 11:34 Initial lab(s) drawn, by sd, sent to lab. Maintain EMS IV. Dressing intact. Good blood [facility] return noted. Site clean \T\ dry. Gauge \T\ site: 20 Right FA. 11:54 Tegretol Level Sent. 5 11:55 Salicylate Sent. 5 11:55 Ptt, Activated Sent. mh5 11:55 Hepatic Function Sent. mh5 11:55 Acetaminophen Sent. mh5 11:55 ETOH Level Sent. mh5 11:55 Basic Metabolic Panel Sent. mh5 11:56 Carbamazepine (Tegretol) Level Sent. mh5 11:56 Basic Metabolic Panel Sent. mh5 11:56 Acetaminophen Level Sent. mh5 12:31 Urine collected: straight cath specimen, clear, Amount Returned: 40mL. Straight cath sr5 inserted, using sterile technique, 16 Fr. Specimen obtained. 14:23 No provider procedures requiring assistance completed. IV discontinued, intact, jl7 bleeding controlled, No redness/swelling at site. Pressure dressing applied. Administered Medications: 13:45 Drug: TEGretol (carbamazepine) 400 mg Route: PO; bp 14:11 Follow up: Response: Medication administered at discharge. bp Outcome: 13:42 Discharge ordered by . kdr 14:48 Discharged to group home. Report called to [place] [id number] 14:48 Condition: stable 14:48 Discharge instructions given to group home, Instructed on discharge instructions, follow up and referral plans. medication usage, Demonstrated understanding of instructions, follow-up care, medications, Prescriptions given X 1. 15:25 Patient left the ED. bp Signatures: Stew Scheerr MD MD [facility] IváneckNikunj edward, RN RN 5 Katarina Méndez [facility] Dolores Estrada RN RN jl7 Gianfranco Landeros, RN RN bp
[2020-12-18] MEDS ORDERED: carBAMazepine 200 MG TAB ONE (14:18)
[2020-12-18 16:32] VITALS: TEMP 98.8; O2SAT 100
[2020-12-18 16:35] VITALS: BP 139/65
--- NOTE | 2020-12-19 06:46 | EKG ---
Test Date: 2020-12-18 Test Time: 11:09:14 Mandolin Repair Person: HENNY MEASUREMENT RESULTS: Intervals: Rate: 91 CT: 166 QRSD: 82 QT: 364 QTc: 447 Maybeury: P: 54 CT: 166 QRS: 42 T: 65 INTERPRETIVE STATEMENTS: Normal sinus rhythm Normal ECG Compared to ECG 11/05/2020 21:01:13 No significant changes Electronically Signed On 12-19-20 06:44:17 CDT by Ranjith Cates
== END 2020-12-18 15:25 | disposition home or self-care (01) ==
LOC: ER 10:58
DX: G40.802 Other epilepsy, not intractable, without status epilepticus (principal); F03.90 Unspecified dementia, unspecified severity, without behavioral disturbance, psychotic disturbance, mood disturbance, and anxiety; Z86.73 Personal history of transient ischemic attack (TIA), and cerebral infarction without residual deficits
CPT/HCPCS: 36415; 51702; 80048; 80076; 80156; 80307; 80320; 80329; 81003; 85025; 85610; 85730; 93005; 99284

== ENCOUNTER 2022-11-08 11:58 | Emergency (ER) | payer OTHER ==
[2022-11-08] MEDS ORDERED: TDAP (DIPHTH,PERTUSS(ACELL),TET VAC) 0.5 ML VIAL IMVAC ONE (12:25)
[2022-11-08] MEDS ORDERED: DERMABOND SKIN ADHESIVE TOP ONE (12:25)
--- NOTE | 2022-11-08 12:54 | RAD REPORT ---
EXAM DESCRIPTION: CT - Head Brain Wo Cont - 11/08/2022 12:24 pm CLINICAL HISTORY: Trauma. Fall with laceration to forehead. COMPARISON: 02/13/2021 and 11/06/2016 TECHNIQUE: Axial 5 mm thick images of the head were obtained without IV contrast. Multiplanar reform ats were generated and reviewed. All CT scans are performed using dose optimization technique as appropriate and may include automated exposure control or mA/KV adjustment according to patient size. FINDINGS: No intracranial hemorrhage, mass, edema or shift of mid-line structures. No acute infarcti on changes seen. No other abnormal extra-axial fluid collections. Stable positioning of multiple ventriculostomy catheters terminating along the body and trigone of th e left lateral ventricle. Ventricles are stable in caliber and configuration. Encephalomalacia involv ing the left frontal lobe with an overlying extra-axial fluid collection, stable, with stable mass ef fect. Stable moderate parenchymal atrophic changes and patchy subcortical and deep white matter chronic isc hemic changes are present. Marked atrophic changes of the corpus callosum are again noted. Mastoid air cells and visualized portions of the paranasal sinuses are clear. No acute bony findings. Sequelae of multiple craniotomies are again noted. IMPRESSION: No acute intracranial process. Stable positioning of multiple ventriculostomy catheters terminating in the left lateral ventricle, w ith stable ventricular size. Stable left frontal encephalomalacia and an overlying fluid density extra-axial collection. Stable pa tchy deep white matter hypodensities which could reflect sequelae of chronic small vessel ischemic ch anges.
--- NOTE | 2022-11-08 13:13 | RAD REPORT ---
EXAM DESCRIPTION: CT - C Spine Wo Con - 11/08/2022 12:24 pm CLINICAL HISTORY: PAIN COMPARISON: Head C Spine Mpr Wo Con dated 11/05/2020; Head Brain Wo Cont dated 11/08/2022 FINDINGS: The cervical vertebral body heights are maintained. Mild spondylosis lower cervical spine. No evidence of acute cervical spine fracture or subluxation. Prevertebral soft tissues are normal in thickness. Right-sided shunt tubing noted without unexpected finding. Mild carotid atherosclerosis IMPRESSION: Negative for acute cervical spine abnormality. Mild lower cervical degenerative spondylosis. All CT scans are performed using dose optimization technique as appropriate and may include automated exposure control or mA/KV adjustment according to patient size.
--- NOTE | 2022-11-08 14:37 | EDPHYS ---
Physician Documentation [facility] [place], [place] Name: Tonio Almonte Age: 72 yrs Sex: Male : 1950 Arrival Date: 11/08/2022 Time: 12:01 Bed 10 Private MD: ED Physician Noe Mcmullen HPI: 11/08 12:07 This 72 yrs old Male presents to ER via EMS with complaints of head injury. bs3 12:07 72-year-old male history of CVA, gait disturbance unsteadiness walks with walker bs3 presents after a fall hitting the left side of his head he denies loss of consciousness he complains of pain over the left forehead otherwise no complaints he notes that he was reaching for his walker and stumbled no lightheadedness or dizziness before the fall he does not know his last tetanus shot he denies any other complaints. Historical: - Allergies: 12:17 No Known Allergies; ss - PMHx: 12:17 chronic mental illness; CVA; Dementia; ENCEPHALOPATHY; epilepsy; ss - Immunization history:: Client reports receiving the 2nd dose of the Covid vaccine. - Social history:: Smoking status: Patient denies any tobacco usage or history of. ROS: 12:07 Constitutional: Negative for fever, chills bs3 12:07 All other systems are negative. Exam: 12:07 Constitutional: This is a well developed, well nourished patient who is awake, alert, bs3 and in no acute distress. Head/Face: He has several superficial lacerations over the left forehead, no step-off no bony tenderness Eyes: Pupils equal round and reactive to light, extra-ocular motions intact. Lids and lashes normal. No pain to palpation around the orbit ENT: mmm, no posterior phyarngeal erythema Neck: Trachea midline, no thyromegaly, no neck stiffness Chest/axilla: Normal chest wall appearance and motion. Nontender with no deformity. No lesions are appreciated. Cardiovascular: Regular rate and rhythm with a normal S1 and S2. symmetric pulses in upper extremities Abdomen/GI: Soft, non-tender, no rebound or guarding MS/ Extremity: Pulses equal, no cyanosis. Neurovascular intact. Full, normal range of motion. Neuro: Awake and alert, GCS 15, oriented to person, place, time, and situation. Cranial nerves II-XII grossly intact. Motor strength 5/5 in all extremities. Sensory grossly intact. Psych: Awake, alert, with orientation to person, place and time. Behavior, mood, and affect are within normal limits. Vital Signs: 12:01 BP 125 / 83; Pulse 70; Resp 16; Temp 98.5(TE); Pulse Ox 99% on R/A; Weight 87.54 kg; ss Height 5 ft. 6 in. (167.64 cm); Pain 3/10; 12:01 Body Mass Index 31.15 (87.54 kg, 167.64 cm) ss Laceration: 14:34 Wound Repair of 2cm ( 0.8in ) subcutaneous laceration to face. Distal bs3 neuro/vascular/tendon intact. Skin closed with 1 1-0 Adhesive skin closure using Dermabond. Dressed with non-adherent dressing. Patient tolerated well. MDM: 12:02 Patient medically screened. bs3 12:07 Differential diagnosis: Contusion of Hematoma on Laceration of Intracranial bleed- bs3 subdural, epidural, subarachnoid, intracerebral, Concussion without LOC. cerebral contusion. Data reviewed: vital signs, nurses notes. Historians other than the Patient: EMS: Provided further history regarding the fall per the [facility]. External Records Reviewed: longterm records. ED course: We will do CT brain, C-spine we will clean lacerations Will update tetanus we will closed with Dermabond will rule out intracranial hemorrhage and fracture. 13:24 Independent interpretation of the following test(s) in the Emergency Department CT bs3 Scan: My interpretation is Interventricular drains, also dural likely chronic. 14:13 ED course: ct as read by rad as no acute findings, will dc home. bs3 14:34 ED course: pt tolerated lac repair, will dc home. bs3 11/08 12:07 Order name: CT Head Brain wo Cont bs3 11/08 12:07 Order name: CT C Spine bs3 11/08 12:55 Order name: CT; Complete Time: 14:12 EDMS 11/08 13:13 Order name: CT; Complete Time: 14:12 EDMS 11/08 12:07 Order name: Dermabond; Complete Time: 13:03 bs3 11/08 16:16 Order name: Diet Regular; Complete Time: 16:16 bd Administered Medications: 14:02 Drug: Boostrix Tdap 0.5 ml Route: IM; Site: left deltoid; ss 14:03 Not Given (Physician Discretion): Tetanus-Diphtheria Toxoid Adult 0.5 ml IM once; ss Provide Vaccine Information Statement (VIS). Disposition Summary: 11/08/22 14:37 Discharge Ordered Location: Home bs3 Problem: new bs3 Symptoms: are resolved bs3 Condition: Stable bs3 Diagnosis - Unspecified injury of head, initial encounter bs3 - Facial Laceration/ Laceration without foreign body of cheek and temporomandibular bs3 area Followup: bs3 - With: Private Physician - When: - Reason: Re-evaluation by your physician Discharge Instructions: - Discharge Summary Sheet bs3 - Head Injury, Adult bs3 Forms: - Medication Reconciliation Form bs3 - Thank You Letter bs3 - Antibiotic Education bs3 - SBAR form bd - Prescription Opioid Use bs3 Signatures: Dispatcher [employer] Shobha Dennis RN RN Noe Barbosa MD MD bs3
--- NOTE | 2022-11-08 14:37 | ER ---
Nurse's Notes [facility] Name: Tonio Almonte Age: 72 yrs Sex: Male : 1950 Arrival Date: 11/08/2022 Time: 12:01 Bed 10 Private MD: Diagnosis: Unspecified injury of head, initial encounter;Facial Laceration/ Laceration without foreign body of cheek and temporomandibular area Presentation: 11/08 12:01 Chief complaint: Patient's son or daughter states: tripped and fell in hallway at residential. Denies LOC. small laceration noted above L eye. Coronavirus screen: Client denies travel out of the [place] in the last 14 days. Ebola Screen: Patient denies exposure to infectious person. Patient denies travel to an Ebola-affected area in the 21 days before illness onset. Initial Sepsis Screen: Does the patient meet any 2 criteria? No. Patient's initial sepsis screen is negative. Does the patient have a suspected source of infection? No. Patient's initial sepsis screen is negative. Risk Assessment: Do you want to hurt yourself or someone else? Patient reports no desire to harm self or others. Onset of symptoms was November 08, 2022. 12:01 Method Of Arrival: EMS: [facility] ss 12:01 Acuity: OPAL 3 ss Historical: - Allergies: 12:17 No Known Allergies; ss - PMHx: 12:17 chronic mental illness; CVA; Dementia; ENCEPHALOPATHY; epilepsy; ss - Immunization history:: Client reports receiving the 2nd dose of the Covid vaccine. - Social history:: Smoking status: Patient denies any tobacco usage or history of. Screenin:18 [facility] ED Fall Risk Assessment (Adult) Impaired Gait Yes (1 pt) Score/Fall Risk Level ss 3 or more points = High Risk. Abuse screen: Denies threats or abuse. Denies injuries from another. Nutritional screening: No deficits noted. Tuberculosis screening: Never had TB. Assessment: 12:18 Reassessment: Pt to CT now VIA stretcher. ss 12:19 General: Appears in no apparent distress. Behavior is calm, cooperative, Denies fever, ss feeling ill, fatigue, chills. Pain: Complains of pain in middle aspect of left eyebrow and outer aspect of left eyebrow Pain currently is 3 out of 10 on a pain scale. Quality of pain is described as tender, Pain began suddenly, Is continuous. Neuro: Level of Consciousness is awake, alert, obeys commands, Oriented to person, place. Respiratory: Airway is patent Respiratory effort is even, unlabored, Respiratory pattern is regular, symmetrical. GI: Patient currently denies abdominal pain, nausea. Derm: Skin is intact, is healthy with good turgor, Skin is dry, Skin is pink, warm \T\ dry. normal. Musculoskeletal: Circulation, motion, and sensation intact. Range of motion: intact in all extremities. 14:40 Reassessment: Report called to CHRISSY Batres at [facility]. Gisel states she ss will call back with ETA SARAH. Vital Signs: 12:01 BP 125 / 83; Pulse 70; Resp 16; Temp 98.5(TE); Pulse Ox 99% on R/A; Weight 87.54 kg; ss Height 5 ft. 6 in. (167.64 cm); Pain 3/10; 12:01 Body Mass Index 31.15 (87.54 kg, 167.64 cm) ED Course: 12:01 Patient arrived in ED. ss 12:02 Noe Mcmullen MD is Attending Physician. bs3 12:17 Triage completed. ss 12:17 Shobha Gaines RN is Primary Nurse. ss 12:17 Arm band placed on left wrist. ss 12:18 Patient has correct armband on for positive identification. Pulse ox on. NIBP on. ss 14:59 No provider procedures requiring assistance completed. Patient did not have IV access ss during this emergency room visit. 16:22 Diet: Patient given snack. Patient given water. Tolerated well. eh3 17:31 Diet: Patient given a heart healthy meal tray. Patient given water. Tolerated well. eh3 Administered Medications: 14:02 Drug: Boostrix Tdap 0.5 ml Route: IM; Site: left deltoid; ss 14:03 Not Given (Physician Discretion): Tetanus-Diphtheria Toxoid Adult 0.5 ml IM once; ss Provide Vaccine Information Statement (VIS). Medication: 18:48 VIS not applicable for this client. eh3 Outcome: 14:37 Discharge ordered by . bs3 18:49 Discharged to residential. Transfer form completed. eh3 18:49 Condition: stable 18:49 Discharge instructions given to patient, Instructed on discharge instructions, follow up and referral plans. Demonstrated understanding of instructions, follow-up care. 18:50 Patient left the ED. eh3 Signatures: Shobha Gaines RN RN Shawnee Fischer RN RN eh3 Noe Mcmullen MD MD bs3
[2022-11-08 19:14] VITALS: BP 125/83; TEMP 98.5; O2SAT 99
== END 2022-11-08 18:50 | disposition home or self-care (01) ==
LOC: ER 11:58
PROC: 0HQ1XZZ Repair Face Skin, External Approach (ICD-10-PCS; principal; 2022-11-08)
DX: S01.412A Laceration without foreign body of left cheek and temporomandibular area, initial encounter (principal); S09.90XA Unspecified injury of head, initial encounter; Z86.73 Personal history of transient ischemic attack (TIA), and cerebral infarction without residual deficits
CPT/HCPCS: 70450; 72125; 96372; 99283